=== PATIENT | male | born 1960 | race Caucasian/White ===

== ENCOUNTER 2017-09-27 00:54 | Observation (INO) | payer MEDICAID, OTHER ==
--- NOTE | 2017-09-27 01:13 | CPEKG ---
Heart Rate: 72 RR Interval: 833 P-R Interval: 192 QRSD Interval: 92 QT Interval: 388 QTC Interval: 425 P [place]: 44 QRS [place]: -24 T Wave [place]: 18 EKG Severity - OTHERWISE NORMAL ECG - EKG Impression: SINUS RHYTHM EKG Impression: BORDERLINE LEFT AXIS DEVIATION Electronically Signed By: Rito Oro 27-Sep-2017 01:44:52
[2017-09-27 01:41] LABS: % IMMATURE GRANULYOCYTES 0.3 % (0.0-1.1); ABSOLUTE IMMATURE GRANULOCYTES 0.04 10^3/uL (0.00-0.10); ADD DIFF? NO; ADD MORPH? NO; ADD SCAN? YES; ATYPICAL LYMPHOCYTE FLAG 300 (0-99); FRAGMENT RBC FLAG 0 (0-99); HEMATOCRIT 40.9 % (40.0-51.0); HEMOGLOBIN 14.3 g/dL (13.7-17.5); LEFT SHIFT FLG 0 (0-99); LIPEMIA HEMOLYSIS FLAG 90 (0-99); MEAN CELL HEMOGLOBIN 29.8 pg (27.9-34.1); MEAN CELL VOLUME 85.2 fL (81.5-99.8); MEAN PLATELET VOLUME 10.8 fL (8.7-11.7); PLATELET CLUMPS FLAG 0 (0-99); PLATELET COUNT 165 10^3/uL (150-400)
--- NOTE | 2017-09-27 01:43 | EDPHY ---
H & P Stated Complaint: SOB, " I feel like when I had a blood infection 6 years ago". Time Seen by Provider: 09/27/17 01:03 HPI/ROS: Chief Complaint: Shortness of breath, fatigue HPI: 57-year-old male presenting with 6 days of worsening shortness of breath, lethargy and mild headache. Patient states he feels similar to when he developed a pneumonia with a blood infection 5 years ago. He has not had any cough. Some chills and sweats. No chest pain. Some nausea but no vomiting. Symptoms have been progressing over the week. Patient states when he was admitted to the hospital he was diagnosed with a mitral valve prolapse. He does not recall being told that he has a heart murmur. He does not smoke. Drinks rare alcohol. Denies any other facial drug use. He did fly to [place] several weeks ago otherwise no periods of immobility. 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 ROS: 10 point Review of Systems is negative except as noted in the HPI. PMH: Pneumonia with bacteremia 2011, mitral valve prolapse Social History: No smoking, rare alcohol, no recreational drug use Family History: Father has hypertension and angina at age 88 Physical Exam: Gen: Awake, Alert, No Distress HEENT: Nose: no rhinorrhea Eyes: PERRLA, EOMI Mouth: Moist mucosa Neck: Supple, no JVD Chest: nontender, lungs clear to auscultation Heart: S1, S2 normal, he is a 5 on 6 systolic murmur blowing in nature most pronounced at the apex Abd: Soft, non-tender, no guarding Back: no CVA tenderness, no midline tenderness Ext: no edema, non-tender Skin: no rash Neuro: CN II-XII intact, Sensation grossly intact, Strength 5/5 in bilateral upper and lower extremities - Personal History Current Tetanus/Diphtheria Vaccine: Unsure Current Tetanus Diphtheria and Acellular Pertussis (TDAP): Unsure - Medical/Surgical History Hx Asthma: No Hx Chronic Respiratory Disease: No Hx Diabetes: No Hx Cardiac Disease: No Hx Renal Disease: No Hx Cirrhosis: No Hx Alcoholism: No Hx HIV/AIDS: No Hx Splenectomy or Spleen Trauma: No Other PMH: elbow surgery - Social History Smoking Status: Never smoked Constitutional: Initial Vital Signs Temperature (C) 37.6 C 09/27/17 00:58 Heart Rate 80 09/27/17 00:58 Respiratory Rate 16 09/27/17 00:58 Blood Pressure 103/63 09/27/17 00:58 O2 Sat (%) 92 09/27/17 00:58 O2 Delivery Mode Room Air O2 (L/minute) 2 Allergies/Adverse Reactions: No Known Allergies Allergy (Verified 09/27/17 01:02) Medical Decision Making - Diagnostics EKG Interpretation: ECG time 1:10 a.m., sinus rhythm with a rate of 72, borderline left axis deviation, normal intervals, no acute ST or T-wave changes. Imaging Results: Chest x-ray shows evidence of cephalization. There is no focal infiltrates, appears unchanged from the CT tonger film from 2011. CT scan of the chest is interpreted by Dr. Meier. Cardiomegaly, no PE or airspace disease. Imaging: I viewed and interpreted images myself ED Course/Re-evaluation: 57-year-old male presenting with dyspnea and fatigue for the last week. He has a very dramatic murmur on examination. CT scan of the chest shows cardiomegaly. No evidence of infection at this time. I have discussed the case with Dr. Camacho, he will admit the patient to [facility] to arrange for an echocardiogram today. - Data Points Laboratory Results: Laboratory Results 09/27/17 01:15 09/27/17 01:15 09/27/17 09/27/17 09/27/17 01:15 01:15 01:15 WBC 11.62 10^3/uL H 10^3/uL (3.80-9.50) RBC 4.80 10^6/uL 10^6/uL (4.40-6.38) Hgb 14.3 g/dL g/dL (13.7-17.5) Hct 40.9 % % (40.0-51.0) MCV 85.2 fL fL (81.5-99.8) MCH 29.8 pg pg (27.9-34.1) MCHC 35.0 g/dL g/dL (32.4-36.7) RDW 13.0 % % (11.5-15.2) Plt Count 165 10^3/uL 10^3/uL (150-400) MPV 10.8 fL fL (8.7-11.7) Neut % (Auto) 18.5 % L % (39.3-74.2) Lymph % (Auto) 75.0 % H % (15.0-45.0) [place] % (Auto) 4.7 % % (4.5-13.0) Eos % (Auto) 0.2 % L % (0.6-7.6) Baso % (Auto) 1.3 % % (0.3-1.7) Nucleat RBC Rel Count 0.0 % % (0.0-0.2) Absolute Neuts (auto) 2.15 10^3/uL 10^3/uL (1.70-6.50) Absolute Lymphs (auto) 8.71 10^3/uL H 10^3/uL (1.00-3.00) Absolute Monos (auto) 0.55 10^3/uL 10^3/uL (0.30-0.80) Absolute Eos (auto) 0.02 10^3/uL L 10^3/uL (0.03-0.40) Absolute Basos (auto) 0.15 10^3/uL H 10^3/uL (0.02-0.10) Absolute Nucleated RBC 0.00 10^3/uL 10^3/uL (0-0.01) Immature Gran % 0.3 % % (0.0-1.1) Seg Neutrophils % 17 % % Lymphocytes % 73 % % Monocytes % 10 % % Immature Gran # 0.04 10^3/uL 10^3/uL (0.00-0.10) Absolute Seg Neuts 1.98 10^/uL 10^/uL (1.70-6.50) Absolute Lymphocytes 8.48 10^3/uL H 10^3/uL (1.00-3.00) Absolute Monocytes 1.16 10^3/uL H 10^3/uL (0.30-0.80) RBC/WBC/PLT Morphology NORMAL (NORMAL) Atypical Lymphocytes 3+ H Platelet Estimate ADEQUATE (ADEQ) Smear Review By Pending D-Dimer 4.38 ug/mLFEU H ug/mLFEU (0.00-0.50) Sodium 135 mEq/L mEq/L (134-144) Potassium 4.1 mEq/L mEq/L (3.5-5.2) Chloride 99 mEq/L mEq/L (97-110) Carbon Dioxide 25 mEq/l mEq/l (22-31) Anion Gap 11 mEq/L mEq/L (8-16) BUN 15 mg/dL mg/dL (7-23) Creatinine 1.2 mg/dL mg/dL (0.7-1.3) Estimated GFR > 60 Glucose 103 mg/dL H mg/dL (70-100) Calcium 8.8 mg/dL mg/dL (8.5-10.4) Troponin I < 0.012 ng/mL ng/mL (0.000-0.034) Departure - Departure Disposition: [facility] Inpatient Acute Clinical Impression: Cardiomegaly, Dyspnea Condition: Fair Referrals: DAVON EASON [Other] - As per Instructions
[2017-09-27 02:06] LABS: ANION GAP 11 mEq/L (8-16); CALCIUM 8.8 mg/dL (8.5-10.4); CARBON DIOXIDE 25 mEq/l (22-31); CHLORIDE 99 mEq/L (97-110); CREATININE 1.2 mg/dL (0.7-1.3); GLOMERULAR FILTRATION RATE > 60; GLUCOSE 103 mg/dL (70-100); POTASSIUM 4.1 mEq/L (3.5-5.2); SODIUM 135 mEq/L (134-144)
[2017-09-27 02:07] LABS: SCAN POSITIVE
[2017-09-27 02:11] LABS: PLATELET ESTIMATE ADEQUATE (ADEQ)
[2017-09-27 02:17] LABS: TROPONIN I < 0.012 ng/mL (0.000-0.034)
[2017-09-27] MEDS ORDERED: IOPAMIDOL (ISOVUE 370) 100 ML BTL IV ONE (02:17)
[2017-09-27] MEDS ORDERED: ONDANSETRON DISINTEGRATING 4 MG TAB PO PRN (03:00)
[2017-09-27] MEDS ORDERED: ONDANSETRON 4 MG/2 ML VIAL IVP PRN (03:00)
[2017-09-27] MEDS ORDERED: ACETAMINOPHEN 325 MG TAB PO PRN (03:00)
--- NOTE | 2017-09-27 03:49 | PDGENHP ---
History and Physical - Chief Complaint Fatigue - History of Present Illness 57 yo M w/ PMHx of mitral valve prolapse presents with fatigue. Patient states that he has noted fatigue, subjective fevers, chills, runny nose, and body aches for 5 days. This failed to improve so he came to the ED for evaluation because last time he felt like this he was found to have pneumonia and bacteremia in 2011. He takes no medications regularly and up until 5 days ago, was exercising vigorously without issue. He went skiing last Saturday and felt ok. In the ED D-dimer was high, prompting CTPE, which was negative for PE. Physical examination was notable for III/ systolic murmur at the apex, which was main reason for admission noting constellation of symptoms. History Information - Allergies/Home Medication List Allergies/Adverse Reactions: No Known Allergies Allergy (Verified 09/27/17 01:02) I have personally reviewed and updated: family history, medical history - Past Medical History Additional medical history: MVP - Surgical History Reports: no pertinent surgical hx - Family History Positive for: cancer - Social History Smoking Status: Never smoked Review of Systems Review of Systems: ROS: 10pt was reviewed & negative except for what was stated in HPI & below Physical Exam Physical Exam: Temp Pulse Resp BP Pulse Ox 37.6 C 70 20 123/70 H 97 09/27/17 00:58 09/27/17 03:05 09/27/17 03:05 09/27/17 03:05 09/27/17 03:05 O2 (L/minute) 2 Constitutional: no apparent distress, not in pain Eyes: PERRL, EOMI Ears, Nose, Mouth, Throat: moist mucous membranes, no oral mucosal ulcers Cardiovascular: regular rate and rhythym, systolic murmur (3/6 systolic murmur loudest @ apex), No JVD, No edema Respiratory: no respiratory distress, clear to auscultation Gastrointestinal: normoactive bowel sounds, soft, non-tender abdomen Skin: warm, normal color Musculoskeletal: full muscle strength, no muscle tenderness Neurologic: AAOx3, CN II-XII Intact Psychiatric: interacting appropriately, not anxious Lab Data & Imaging Review 09/27/17 01:15 09/27/17 01:15 WBC 11.62 10^3/uL (3.80-9.50) H 09/27/17 01:15 RBC 4.80 10^6/uL (4.40-6.38) 09/27/17 01:15 Hgb 14.3 g/dL (13.7-17.5) 09/27/17 01:15 Hct 40.9 % (40.0-51.0) 09/27/17 01:15 MCV 85.2 fL (81.5-99.8) 09/27/17 01:15 MCH 29.8 pg (27.9-34.1) 09/27/17 01:15 MCHC 35.0 g/dL (32.4-36.7) 09/27/17 01:15 RDW 13.0 % (11.5-15.2) 09/27/17 01:15 Plt Count 165 10^3/uL (150-400) 09/27/17 01:15 MPV 10.8 fL (8.7-11.7) 09/27/17 01:15 Neut % (Auto) 18.5 % (39.3-74.2) L 09/27/17 01:15 Lymph % (Auto) 75.0 % (15.0-45.0) H 09/27/17 01:15 [place] % (Auto) 4.7 % (4.5-13.0) 09/27/17 01:15 Eos % (Auto) 0.2 % (0.6-7.6) L 09/27/17 01:15 Baso % (Auto) 1.3 % (0.3-1.7) 09/27/17 01:15 Nucleat RBC Rel Count 0.0 % (0.0-0.2) 09/27/17 01:15 Absolute Neuts (auto) 2.15 10^3/uL (1.70-6.50) 09/27/17 01:15 Absolute Lymphs (auto) 8.71 10^3/uL (1.00-3.00) H 09/27/17 01:15 Absolute Monos (auto) 0.55 10^3/uL (0.30-0.80) 09/27/17 01:15 Absolute Eos (auto) 0.02 10^3/uL (0.03-0.40) L 09/27/17 01:15 Absolute Basos (auto) 0.15 10^3/uL (0.02-0.10) H 09/27/17 01:15 Absolute Nucleated RBC 0.00 10^3/uL (0-0.01) 09/27/17 01:15 Immature Gran % 0.3 % (0.0-1.1) 09/27/17 01:15 Seg Neutrophils % 17 % 09/27/17 01:15 Lymphocytes % 73 % 09/27/17 01:15 Monocytes % 10 % 09/27/17 01:15 Immature Gran # 0.04 10^3/uL (0.00-0.10) 09/27/17 01:15 Absolute Seg Neuts 1.98 10^/uL (1.70-6.50) 09/27/17 01:15 Absolute Lymphocytes 8.48 10^3/uL (1.00-3.00) H 09/27/17 01:15 Absolute Monocytes 1.16 10^3/uL (0.30-0.80) H 09/27/17 01:15 RBC/WBC/PLT Morphology NORMAL (NORMAL) 09/27/17 01:15 Atypical Lymphocytes 3+ H 09/27/17 01:15 Platelet Estimate ADEQUATE (ADEQ) 09/27/17 01:15 D-Dimer 4.38 ug/mLFEU (0.00-0.50) H 09/27/17 01:15 Sodium 135 mEq/L (134-144) 09/27/17 01:15 Potassium 4.1 mEq/L (3.5-5.2) 09/27/17 01:15 Chloride 99 mEq/L (97-110) 09/27/17 01:15 Carbon Dioxide 25 mEq/l (22-31) 09/27/17 01:15 Anion Gap 11 mEq/L (8-16) 09/27/17 01:15 BUN 15 mg/dL (7-23) 09/27/17 01:15 Creatinine 1.2 mg/dL (0.7-1.3) 09/27/17 01:15 Estimated GFR > 60 09/27/17 01:15 Glucose 103 mg/dL (70-100) H 09/27/17 01:15 Calcium 8.8 mg/dL (8.5-10.4) 09/27/17 01:15 Troponin I < 0.012 ng/mL (0.000-0.034) 09/27/17 01:15 Imaging Review: CTPE with cardiomegaly but no PE Visualized and Interpreted Chest x-ray results: Yes Chest X-Ray results: no infiltrate Visualized and Interpreted EKG results: Yes EKG Interpretation: Positive for: normal sinsus rhythm Assessment & Plan Assessment: 57 yo M presents with fatigue and found to have new murmur on exam. Plan: 1. Fatigue - Constellation of symptoms (fatigue, fever/chills, runny nose, body aches) suspicious for viral illness. However, noting cardiomegaly and reportedly new murmur, cardiomyopathy and infective endocarditis should be ruled out. - Check flu PCR - Obtain blood cultures, TTE for further evaluation 2. Systolic murmur - Loudest at the apex but heard throughout precordium. This is most likely progression of MVP seen on 2012 TTE. - TTE as above - Consider cardiology consult depending results of TTE Diet - Regular Code - Full Ppx - SCDs Dispo - Admit to observation status
[2017-09-27 05:46] LABS: ANION GAP 12 mEq/L (8-16); CALCIUM 8.6 mg/dL (8.5-10.4); CARBON DIOXIDE 25 mEq/l (22-31); CHLORIDE 99 mEq/L (97-110); CREATININE 1.3 mg/dL (0.7-1.3); GLOMERULAR FILTRATION RATE 57; GLUCOSE 91 mg/dL (70-100); POTASSIUM 4.3 mEq/L (3.5-5.2); SODIUM 136 mEq/L (134-144)
[2017-09-27 05:48] LABS: % IMMATURE GRANULYOCYTES 0.3 % (0.0-1.1); ABSOLUTE IMMATURE GRANULOCYTES 0.04 10^3/uL (0.00-0.10); ABSOLUTE NRBC COUNT 0.02 10^3/uL (0-0.01); ADD DIFF? NO; ADD MORPH? NO; ADD SCAN? YES; FRAGMENT RBC FLAG 0 (0-99); HEMATOCRIT 39.3 % (40.0-51.0); HEMOGLOBIN 13.5 g/dL (13.7-17.5); LEFT SHIFT FLG 0 (0-99); LIPEMIA HEMOLYSIS FLAG 90 (0-99); MEAN CELL HEMOGLOBIN 29.7 pg (27.9-34.1); MEAN CELL HEMOGLOBIN CONCENTR. 34.4 g/dL (32.4-36.7); MEAN CELL VOLUME 86.4 fL (81.5-99.8); MEAN PLATELET VOLUME 10.9 fL (8.7-11.7); NRBC-AUTO% 0.2 % (0.0-0.2); PLATELET CLUMPS FLAG 0 (0-99); PLATELET COUNT 149 10^3/uL (150-400); RED BLOOD CELL COUNT 4.55 10^6/uL (4.40-6.38); RED CELL DISTRIBUTION WIDTH 13.2 % (11.5-15.2)
[2017-09-27 05:49] LABS: ATYPICAL LYMPHOCYTE FLAG 300 (0-99)
[2017-09-27 06:32] LABS: SCAN POSITIVE
[2017-09-27 06:35] LABS: PLATELET ESTIMATE ADEQUATE (ADEQ)
[2017-09-27 08:01] VITALS: RESP 17
--- NOTE | 2017-09-27 10:41 | ASMTCMCOM ---
CM Note CM Note Notes: 09/27/2017 Case Management Note Reviewed chart. No case management d/c needs identfied d/t pt age, marital status and activity levels prior to admission. There are no PT or OT evals ordered. Case Management d/c poc: Home independent with family support when medically stable. Case Management available if needs change. Date Signed: 09/27/2017 10:40 AM Electronically Signed By:Jennifer Jim RN
[2017-09-27 12:16] VITALS: BP 118/69; PULSE 65; TEMP 98.1; O2SAT 93
--- NOTE | 2017-09-27 13:59 | ECHO ---
[email or web address] [address] Main: [phone] Fax: [email or web address] Echocardiogram Name: MELODY WARE MR#: [id number] Study Date: 09/27/2017 Study Time: 08:37 AM Date of : 1960 Age: 57 year(s) Height: 180.3 cm (71 in.) Weight: 90.72 kg (200 lb.) BSA: 2.11 m2 Gender: Male Examination: Echo Indication: SIN/murmur Image Quality: Contrast: Requested by: Anton Bennett BP: 113 mmHg/64 mmHg Heart Rate: Rhythm: Indication: SIN/murmur Procedure Staff Gi Physician: Lu Ramírez Reading Physician: Alexei Guillen Requesting Provider: Conclusions: Moderately to severely dilated left ventricle. Normal global systolic LV function. EF is 76 %. The left atrium is moderately to severely dilated. There is severe prolapse of the posterior leaflet of the mitral valve. Moderate to severe mitral regurgitation. Mild tricuspid regurgitation is present. No pericardial effusion. Measurements: Chambers Valvular Assessment AV/MV Valvular Assessment TV/PV Normal Normal Normal Name Value Range Name Value Range Name Value Range Ao Samantha (MM): 4.0 cm (2.2 cm-3.7 AV meanP mmHg ( - ) TR Vmax: 3.22 mm/s ( - ) cm) BRANDIE (VTI): 3.4 cm ( - ) TR PGmax: 41 mmHg ( - ) IVSd (2D): 1.0 cm (0.6 cm-1.1 MV E Vmax: 1.52 m/s ( - ) syst. PAP: 46 mmHg ( - ) cm) MV A Vmax: 0.44 m/s ( - ) LVDd (2D): 7.1 cm (4.2 cm-5.9 MV E/A: 3.45 ( - ) cm) MV meanP mmHg ( - ) LVDs (2D): 3.9 cm (2.1 cm-4 cm) MVA (Vmax): 2.2 m/s ( - ) LVPWd (2D): 0.9 cm (0.6 cm-1 cm) LVOTd 2.3 cm 2.3 cm mm LVEF (MOD4): 76 % (>=55 %) Continued Measurements: Chambers Valvular Assessment AV/MV Valvular Assessment TV/PV Name Value Name Value Name Value Patient: MELODY WARE Study Date: 09/27/2017 Page 1 of 2 08:37 AM LADs: 5.2 cm MV Annulus: 5.2 cm CVP (est.): 5 mmHg LADs Lon.7 cm MV E' Septal: 0.07 m/s LA Area: 40.3 cm2 MV E/E' Septal: 23.30 MV E/E' Lateral: 8.70 MV VTI: 39.80 cm MR ERO: 1.610 cm2 MR PISA radius: 17 mm MR Reg. Volume: 175 ml MR Reg. Fraction: 21 % Findings: Left Ventricle: Moderately to severely dilated left ventricle. Normal global systolic LV function. EF is 76 %. Right Ventricle: Normal size right ventricle. Left Atrium: The left atrium is moderately to severely dilated. Mitral Valve: There is severe prolapse of the posterior leaflet of the mitral valve. Moderate to severe mitral regurgitation. Aortic Valve: The aortic valve is tri-leaflet. There is no aortic valve regurgitation. Tricuspid Valve: The tricuspid valve appears normal. Mild tricuspid regurgitation is present. The pulmonary artery pressure is mildly increased. RVSP is 46mmHG.. Pulmonic Valve: The pulmonic valve is normal in appearance. Pericardium: No pericardial effusion. (No Signature Object) Patient: MELODY WARE Study Date: 09/27/2017 Page 2 of 2 08:37 AM [id number]
--- NOTE | 2017-09-27 15:42 | HOSPPROG ---
Hospitalist Progress Note Assessment/Plan: * Severe MR due to MVP with dilated LV -consult cardiology - d/w Dr. Guillen * Leukocytosis - lymphocyte predominant -suspect viral -follow until resolution * Splenomegaly -check US and EBV antibodies * Fatigue -suspect viral illness -resp PCR negative Subjective: No new complaints. Objective: Vital Signs Temp Pulse Resp BP Pulse Ox 36.7 C 65 17 118/69 93 09/27/17 12:00 09/27/17 12:00 09/27/17 12:00 09/27/17 12:00 09/27/17 12:00 Microbiology 09/27/17 03:45 Respiratory Panel (PCR) - Final Nasal, Sinus - Swab No Organism Detected Laboratory Results 09/27/17 04:35 09/27/17 04:35 09/26/17 09/27/17 09/28/17 05:59 05:59 05:59 Intake Total 650 Output Total 350 Balance 650 -350 ECHO reviewed - severe MR due to MVP with LV changes ICD10 Worksheet Patient Problems: Problems Problem Status Onset Cardiomegaly Acute Dyspnea Acute
--- NOTE | 2017-09-27 16:39 | GDS ---
[f rep st] DISCHARGE SUMMARY DISCHARGE DIAGNOSES: 1. Severe mitral regurgitation due to mitral valve prolapse with a dilated left ventricle. 2. Lymphocyte predominant leukocytosis; suspect viral illness. 3. Splenomegaly; suspect viral illness. HISTORY: The patient is a 57-year-old male, who presented to the hospital with fatigue, as he was co ncerned he may have recurrence of bacterial pneumonia which he has had in the past. He was noted to have a significant murmur and there was some concern for possible endocarditis, so he was admitted ju to monitor blood cultures. Blood cultures at the time of discharge remained negative. His leukoc ytosis is lymphocyte predominant and most consistent with a viral illness. He had a CT angiogram of the chest that was negative for PE, but we did incidentally find some splenomegaly. I suspect this i s also part of the same viral illness. He should follow up with primary care until this has normaliz ed. Echocardiogram was performed due to the significant murmur, and he was found to have severe mitral re gurgitation due to mitral valve prolapse with a dilated left ventricle. Cardiology was consulted, an d he will likely need mitral valve replacement surgery. It is probably better for him to fully recov er from this viral illness prior to proceeding with CT surgery evaluation. He will discharge home to day, and Cardiology will contact him regarding scheduling for right and left heart catheterization, T EE, and consultation with Dr. Castaneda. DISCHARGE MEDICATIONS: Please see computer record for full detailed list. There are no new medicati ons given at time of hospital discharge. ADDITIONAL DISCHARGE INSTRUCTIONS: 1. Repeat CBC in 1-2 weeks with primary care to ensure normalization. 2. Follow up with primary care regarding spleen enlargement. 3. Follow up with [facility] regarding severe mitral prolapse and needed studies as discussed abo ve. TIME SPENT: Greater than 30 minutes' time was spent arranging this discharge. Patient seen and exam ined by me on day of discharge. /[id number]/MODL
--- NOTE | 2017-09-27 18:30 | GCON ---
[f rep st] CONSULTATION DATE OF CONSULTATION: 09/27/2017 REFERRING PHYSICIAN: Maria G Kunz MD REASON FOR CONSULTATION: Valvular heart disease. HISTORY: The patient is a 57-year-old male with previously documented mitral valve prolapse, who pre sented to the emergency room today with fatigue, subjective fevers and chills, a runny nose and myalg ias. He had concerns because in 2011 he was hospitalized with similar infectious symptoms and was fo und to have a gram-positive cocci bacteremia which was treated with a prolonged course of antibiotic therapy. His evaluation by the hospitalist service is most consistent with a viral upper respiratory tract infection. Because of previously documented mitral valve prolapse, an echocardiogram was requ ested. That study demonstrates significant left ventricular dilatation with preserved left ventricul ar function. He has a myxomatous-appearing mitral valve with predominantly posterior leaflet prolaps e producing gsrmelqe-hr-clgugl mitral regurgitation. The patient reports that apart from the symptom s that prompted this hospital encounter, he has generally been feeling well and remains very physical ly active without a sense of specific limitations. PAST CARDIAC HISTORY AND TESTING: His only cardiac history relates to his mitral valve prolapse. As mentioned previously, that was discovered incidentally on an echocardiogram performed in 2011 during an episode of bacteremia. The patient was seen in consultation by Dr. Reyes from our practice. However, the patient has had no outpatient cardiac followup over the ensuing 5 years. His cardiovasc ular risk profile is low with absence of hypertension, hyperlipidemia, type 2 diabetes, smoking histo ry, or family history of premature CAD. PAST MEDICAL HISTORY: Essentially unremarkable except for his mitral valve prolapse and a tendency t o upper respiratory tract infections. MEDICATIONS: He is on no prescription medications. ALLERGIES: No known drug allergies. FAMILY HISTORY: Noncontributory. SOCIAL HISTORY: He is . He has 3 sons. He has never smoked and rarely consumes alcohol. 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 He is very active with activiti es such as hiking and skiing. REVIEW OF SYSTEMS: Apart from those items mentioned in the History of Present Illness, a 10-point re view was negative. PHYSICAL EXAMINATION: VITAL SIGNS: Heart rate in the 60s with sinus rhythm on monitor. Blood press ure 118/69. GENERAL: Well developed, well nourished, healthy appearing middle-aged male, in no acut e distress. He is alert and oriented x3. HEAD AND NECK: No scleral icterus. Mucous membranes mois t. Carotid pulses 2+ without bruits. There is no JVD. CHEST: Lung ojeda clear to auscultation. CARDIAC: Regular rate and rhythm with a normal S1 and S2. There is a holosystolic murmur. ABDOMEN: Soft, nontender, nondistended, with normal bowel sounds. EXTREMITIES: 2+ pulses and no peripheral edema. ECG: Demonstrates normal sinus rhythm. There are no Q-waves or conduction system abnormalities. Th ere are no ischemic ST-T wave changes. LABORATORY STUDIES: Sodium 136, potassium 4.3, BUN and creatinine 13 and 1.3. Troponin was less alex n 0.012. BNP is minimally elevated at 251. ECHOCARDIOGRAM: His left ventricle is moderately to severely dilated with an end-diastolic dimension of 7.1 cm. Ejection fraction is normal at 76%. There is nansnkla-cq-dnxsxu left atrial enlargement . He has a myxomatous-appearing mitral valve with prolapse of the posterior leaflet producing modera uq-nv-jtqojo mitral regurgitation. He has mild tricuspid regurgitation. 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 His left ventricle is now significantly dilated. He does not manifest any symptoms suggestive of angina, congestive heart failure, or arrhythmias. He had a CT pulmonary angio gram on admission which was negative for pulmonary embolism. There was no mention made of coronary c alcification on that study. However, a similar study performed in January of 2012 made note of coronar y calcification along the course of the circumflex indicating the presence of some atherosclerosis. RECOMMENDATIONS: I had a lengthy discussion with the patient, his , and their adult son nikita tobin the findings of his echo and its implications. I explained that he is nearing the time for conside ration of mitral valve repair/replacement. I also outlined the testing that would be necessary prior to referral to CT surgery. Namely, he will need to undergo a transesophageal echocardiogram and rig ht and left heart catheterization. At this point, I think he can be discharged home. I have sent no tification through our office electronic charting system that he needs to be contacted to arrange for his DENICE and heart catheterization. We will then plan for referral to Dr. Castaneda in cardiothoracic [facility]. /[id number]/MODL
--- NOTE | 2017-09-28 12:22 | ASDISCHSUM ---
Discharge Information Plan Status:Home with No Needs Medically Cleared to Leave: Discharge Date:09/27/2017 05:07 PM CM D/C Disposition:Home, Routine, Self-Care ADT D/C Disposition:Home, Routine, Self-Care Projected Discharge Date:09/27/2017 05:07 PM Transportation at D/C:Family Discharge Delay Reason: Follow-Up Date:09/27/2017 05:07 PM Discharge Slot: Final Diagnosis: Placement Information Patient Contact Information Contact Name:ANNETTA Relationship: Address:[address] Work Phone: [facility]:[employer] Alternate Phone: [facility]/Zip Code:[place] [address] Email: Financial Information Financial Class: Primary Plan Desc:[employer] Primary Plan Number:[id number] Secondary Plan Desc: Secondary Plan Number: Assessment Information [facility] CM Progress Note CM Note CM Note Notes: 09/27/2017 Case Management Note Reviewed chart. No case management d/c needs identfied d/t pt age, marital status and activity levels prior to admission. There are no PT or OT evals ordered. Case Management d/c poc: Home independent with family support when medically stable. Case Management available if needs change. Date Signed: 09/27/2017 10:40 AM Electronically Signed By:Jennifer Jim RN Intervention Information
== END 2017-09-27 17:07 | disposition home or self-care (01) ==
LOC: F2W 04:14
PROVIDERS: ADMIT Student in an Organized Health Care Education/Training Program; ATTEND Internal Medicine
DX: I34.0 Nonrheumatic mitral (valve) insufficiency (principal); R16.1 Splenomegaly, not elsewhere classified; D72.829 Elevated white blood cell count, unspecified
CPT/HCPCS: 71020; 71275; 93005; 93306; G0378; Q9967

== ENCOUNTER 2017-10-10 12:00 | Day surgery (SDC) | payer MEDICAID ==
[2017-10-10] MEDS ORDERED: DIAZEPAM 5 MG TAB PO ONE (12:03)
[2017-10-10] MEDS ORDERED: ASPIRIN EC 325 MG TAB PO ONE (12:03)
[2017-10-10] MEDS ORDERED: NS 1,000 ML IV ONE (12:03)
[2017-10-10] MEDS ORDERED: FAMOTIDINE 20 MG TAB PO ONE (12:03)
[2017-10-10] MEDS ORDERED: diphenhydrAMINE 25 MG CAP PO ONE (12:03)
--- NOTE | 2017-10-10 12:20 | CPEKG ---
Heart Rate: 71 RR Interval: 845 P-R Interval: 188 QRSD Interval: 92 QT Interval: 412 QTC Interval: 448 P [place]: 66 QRS [place]cock: -13 T Wave [place]: 29 EKG Severity - ABNORMAL ECG - EKG Impression: SINUS RHYTHM EKG Impression: CONSIDER LEFT VENTRICULAR HYPERTROPHY Electronically Signed By: Dilshad Godinez 11-Oct-2017 20:26:56
[2017-10-10] MEDS ORDERED: MIDAZOLAM 2 MG/2 ML VIAL IVP ONE (12:23)
[2017-10-10] MEDS ORDERED: NS 500 ML IV ONE (12:23)
[2017-10-10] MEDS ORDERED: fentaNYL 100 MCG/2 ML INJ IVP ONE (12:23)
[2017-10-10] MEDS ORDERED: BENZOCAINE UNIT DOSE SPRAY HURRICAINE MM ONE (12:23)
[2017-10-10 12:30] LABS: % IMMATURE GRANULYOCYTES 0.3 % (0.0-1.1); ABSOLUTE IMMATURE GRANULOCYTES 0.02 10^3/uL (0.00-0.10); ADD DIFF? NO; ADD MORPH? NO; ADD SCAN? YES; FRAGMENT RBC FLAG 0 (0-99); HEMATOCRIT 43.7 % (40.0-51.0); HEMOGLOBIN 15.3 g/dL (13.7-17.5); LEFT SHIFT FLG 0 (0-99); LIPEMIA HEMOLYSIS FLAG 90 (0-99); MEAN CELL HEMOGLOBIN 30.1 pg (27.9-34.1); MEAN CELL VOLUME 85.9 fL (81.5-99.8); MEAN PLATELET VOLUME 9.7 fL (8.7-11.7); PLATELET CLUMPS FLAG 10 (0-99); PLATELET COUNT 175 10^3/uL (150-400); RED BLOOD CELL COUNT 5.09 10^6/uL (4.40-6.38); RED CELL DISTRIBUTION WIDTH 13.6 % (11.5-15.2)
[2017-10-10 12:33] LABS: ATYPICAL LYMPHOCYTE FLAG 100 (0-99)
[2017-10-10 12:40] LABS: INR 0.99 (0.83-1.16); PROTIME(PATIENT) 13.3 SEC (12.0-15.0)
[2017-10-10 12:44] LABS: ANION GAP 12 mEq/L (8-16); CALCIUM 9.1 mg/dL (8.5-10.4); CARBON DIOXIDE 25 mEq/l (22-31); CHLORIDE 104 mEq/L (97-110); CHOLESTEROL 163 mg/dL (140-220); CHOLESTEROL/HDL RATIO 5.62 RATIO (1.00-4.97); GLOMERULAR FILTRATION RATE > 60; GLUCOSE 94 mg/dL (70-100); HIGH DENSITY LIPOPROTEIN 29 mg/dL (40-65); LDL/HDL RATIO 3.17 RATIO (1.00-3.64); LOW DENSITY LIPOPROTEIN 92 mg/dL (80-100); MAGNESIUM 2.2 mg/dL (1.6-2.3); NON-HIGH DENSITY LIPOPROTEIN 134 mg/dL (90-129); POTASSIUM 4.2 mEq/L (3.5-5.2); SODIUM 141 mEq/L (134-144); TRIGLYCERIDE 210 mg/dL (40-150); VERY LOW DENSITY LIPOPROTEINS 42 mg/dL (8-25)
--- NOTE | 2017-10-10 12:48 | PDHPUP ---
History & Physical Update H&P update statement: This history and physical update is based on an assessment of the patient which was completed after admission or registration (within 24 hours), but prior to the surgery/procedure. H&P update: H&P reviewed & patient examined, no change in patient's condition since H&P completed
--- NOTE | 2017-10-10 12:48 | PDPROPOC ---
Sedation Plan of Care Sedation Plan of Care: vital signs stable, mental status noted, patient educated of risks, benefits, alternatives, patient can tolerate sedation ASA Classification: ASA 1 Planned drugs: fentanyl, midazolam Mallampati Score: Class 1 Mallampati Reference Image: Patient passed 3-3-2 rule?: Yes
[2017-10-10] MEDS ORDERED: LIDOCAINE 1% 300 MG/30 ML SDV ONE (13:15)
[2017-10-10] MEDS ORDERED: MIDAZOLAM 2 MG/2 ML VIAL ONE (13:16)
[2017-10-10] MEDS ORDERED: fentaNYL 100 MCG/2 ML INJ ONE (13:16)
[2017-10-10] MEDS ORDERED: IOPAMIDOL (ISOVUE-370) 150 ML BTL IV ONE (13:16)
[2017-10-10 14:02] LABS: SCAN POSITIVE
[2017-10-10 14:07] LABS: PLATELET ESTIMATE ADEQUATE (ADEQ)
[2017-10-10] MEDS ORDERED: ATROPINE SULFATE 1 MG/10 ML SYR IVP PRN (14:31)
[2017-10-10] MEDS ORDERED: HYDROCODONE/APAP 5/325 TAB PO PRN (14:31)
[2017-10-10] MEDS ORDERED: ONDANSETRON 4 MG/2 ML VIAL IVP PRN (14:31)
--- NOTE | 2017-10-10 14:37 | PDDXCAT ---
Diagnostic Cath Note - . Date: 10/10/17 Chain Maker Loom Control: Wilmer Indication: other (Mitral valve prolapse with severe MR and LV dilatation.) - Procedure Access: right groin Procedure: left heart catheterization, coronary angiography, left ventriculogram , right heart catheterization - Materials Left Heart Cath size: 6F Left Heart Cath materials: standard multipack (JL4, JR4, pigtail) Right Heart Cath size: 7F Right Heart Cath materials: PWP catheter - Findings-Left Heart Catheterization LM: Angiographically normal. LAD: Angiographically normal. LCX: Angiographically normal. RCA: Angiographically normal. EDP: 19 mmHg LVEF: 60% with severe MR Wall motion: Normal - Findings-Right Heart Catheterization RA: 10 mmHg RV: 34/8 mmHg PA: 35/18/25 mmHg O2 sat 78% PAOP: 15 mmHg AO: 111/57/76 mmHg O2 sat 97% Estimated blood loss: <50ml Closure method: Angioseal Assessment: 1) Normal LV systolic function. 2) Angiographically normal coronary arteries. 3) Severe mitral regurgitation. Plan: Referral to CT surgery for mitral valve repair/replacement. Patient Problems: Problems Problem Status Onset Cardiomegaly Acute Dyspnea Acute
--- NOTE | 2017-10-10 14:48 | ECHO ---
[email or web address] [place] [id number] Main: [phone] Fax: Transesophageal Echocardiography Name: ANDRY WARE MR#: [id number] Study Date: 10/10/2017 Study Time: 12:33 PM Date of : 1960 Age: 57 year(s) Height: ( ) Weight: ( ) BSA: Gender: Male Examination: DENICE Indication: Eval mitral valve Image Quality: Contrast: Requested by: Alexei Guillen Heart Rate: Rhythm: BP: 113 mmHg/76 mmHg Procedure Staff Mine Captain: Lu Ramírez Reading Physician: Alexei Guillen Requesting Provider: DENICE Exam Details Conclusions: Normal global systolic LV function. An agitated saline study was performed and was negative for intracardiac shunting. There is severe prolapse of the posterior leaflet of the mitral valve. Severe mitral valve regurgitation is present. The aortic valve is tri-leaflet. Trivial tricuspid valve regurgitation. Measurements: Chambers Valvular Assessment AV/MV Valvular Assessment TV/PV Normal Normal Normal Name Value Range Name Value Range Name Value Range Additional Measurements: Findings: Left Ventricle: Normal global systolic LV function. Left Atrium: An agitated saline study was performed and was negative for intracardiac shunting. Mitral Valve: There is severe prolapse of the posterior leaflet of the mitral valve. Severe mitral valve regurgitation is present. Aortic Valve: Patient: ANDRY WARE Study Date: 10/10/2017 Page 1 of 2 12:33 PM The aortic valve is tri-leaflet. There is no aortic valve regurgitation. Tricuspid Valve: The tricuspid valve appears normal. Trivial tricuspid valve regurgitation. l1n (No Signature Object) Patient: ANDRY WARE Study Date: 10/10/2017 Page 2 of 2 12:33 PM [id number]
== END 2017-10-10 18:42 | disposition home or self-care (01) ==
LOC: FCATH 12:00
PROVIDERS: ATTEND Internal Medicine Interventional Cardiology
PROC: 4A023N8 Measurement of Cardiac Sampling and Pressure, Bilateral, Percutaneous Approach (ICD-10-PCS; principal; 2017-10-10)
PROC: B2151ZZ Fluoroscopy of Left Heart using Low Osmolar Contrast (ICD-10-PCS; principal; 2017-10-10)
PROC: B245ZZ4 Ultrasonography of Left Heart, Transesophageal (ICD-10-PCS; principal; 2017-10-10)
PROC: B2111ZZ Fluoroscopy of Multiple Coronary Arteries using Low Osmolar Contrast (ICD-10-PCS; principal; 2017-10-10)
DX: I34.0 Nonrheumatic mitral (valve) insufficiency (principal)
CPT/HCPCS: C1760; J1644; J2250; J3010; Q9967

== ENCOUNTER 2017-11-07 07:15 | Inpatient (IN) | payer MEDICAID ==
[2017-11-15] MEDS ORDERED: ceFAZolin 2 GM/SWFI 2 GM/20 ML SYR IVP ONE (06:00)
[2017-11-15] MEDS ORDERED: SODIUM BICARBONATE 20 MEQ, LIDOCAINE 1% 10 ML in NORMOSOL-R 1,000 ML MISC ONE (06:00)
[2017-11-15] MEDS ORDERED: INSULIN REGULAR HUMAN 100 UNIT in NS 100 ML IV ONE (06:00)
[2017-11-15] MEDS ORDERED: NOREPINEPHRINE BITARTRATE 16 MG in NS 250 ML IV ONE (06:00)
[2017-11-15] MEDS ORDERED: LIDOCAINE 1% 5 ML SDV ID PRN (06:00)
[2017-11-15] MEDS ORDERED: MANNITOL 25% 12.5 GM/50 ML VIAL IVP ONE (06:00)
[2017-11-15] MEDS ORDERED: PHENYLEPHRINE HCL 50 MG in NS 250 ML IV ONE (06:00)
[2017-11-15] MEDS ORDERED: TRANEXAMIC ACID 1,000 MG in NS 100 ML IV ONE (06:00)
[2017-11-15] MEDS ORDERED: CITRATE DEXTROSE SOLN 500 ML BAG MISC ONE (06:00)
[2017-11-15] MEDS ORDERED: LR 1,000 ML IV ONE (06:05)
[2017-11-15] MEDS ORDERED: ALBUMIN 5% 250 ML BOTTLE IV ONE ×2 (06:06→10:21)
[2017-11-15] MEDS ORDERED: PROTAMINE SULFATE 50 MG/5 ML VIAL IVP ONE ×3 (06:06→18:00)
[2017-11-15] MEDS ORDERED: NA BICARBONATE 50 MEQ/50 ML VIAL ONE ×2 (06:07→15:15)
[2017-11-15] MEDS ORDERED: niCARdipine/NACL/200 ML BAG IV ONE (06:07)
[2017-11-15] MEDS ORDERED: MILRINONE/DEXTROSE/100 ML BAG IV ONE (06:07)
[2017-11-15] MEDS ORDERED: DOPamine/DEXTROSE/250 ML BAG IV ONE ×2 (06:07→22:13)
[2017-11-15] MEDS ORDERED: CITRATE DEXTROSE SOLN 500 ML BAG ONE (06:07)
[2017-11-15] MEDS ORDERED: HEPARIN 10,000 UNIT/10 ML MDV (1,000 UNIT/ML) ONE (06:07)
[2017-11-15] MEDS ORDERED: CALCIUM CHLORIDE 1 GM/10 ML INJ ONE (06:07)
[2017-11-15] MEDS ORDERED: LIDOCAINE 2% 100 MG/5 ML SYR ONE (06:07)
[2017-11-15] MEDS ORDERED: MAGNESIUM SULFATE 1 GM/2 ML VIAL ONE (06:08)
[2017-11-15] MEDS ORDERED: ADENOSINE 6 MG/2 ML VIAL ONE (06:08)
[2017-11-15] MEDS ORDERED: AMIODARONE HCL 150 MG/3 ML VIAL ONE (06:08)
[2017-11-15] MEDS ORDERED: ceFAZolin 1 GM VIAL ONE (06:08)
[2017-11-15] MEDS ORDERED: methylPREDNISolone SOD SUCC 1 GM/8 ML VIAL ONE (06:08)
--- NOTE | 2017-11-15 06:16 | PDHPUP ---
History & Physical Update H&P update statement: This history and physical update is based on an assessment of the patient which was completed after admission or registration (within 24 hours), but prior to the surgery/procedure. H&P update: H&P reviewed & patient examined H&P changes: PT with URI now recovered. Denies fever, productive cough.
[2017-11-15] MEDS: MUPIROCIN 2% 22 GM OINT NS SCH ×3 (06:29→21:17)
[2017-11-15] MEDS ORDERED: MIDAZOLAM 2 MG/2 ML VIAL ONE (07:04)
[2017-11-15] MEDS ORDERED: MIDAZOLAM 2 MG/2 ML VIAL IVP ONE (07:05)
--- NOTE | 2017-11-15 07:06 | PDANEPAE ---
ANE History of Present Illness here for mini mvr ANE Past Medical History - Cardiovascular History Hx Hypertension: No Hx Arrhythmias: No Hx Chest Pain: No Hx Coronary Artery / Peripheral Vascular Disease: No Hx CHF / Valvular Disease: Yes Hx Palpitations: No Cardiovascular History Comment: mitral valve prolapse - Pulmonary History Hx COPD: No Hx Asthma/Reactive Airway Disease: No Hx Recent Upper Respiratory Infection: No Hx Oxygen in Use at Home: No Hx Sleep Apnea: No Sleep Apnea Screening Result - Last Documented: Negative Pulmonary History Comment: pneumonia couple times last 5 yrs ago - Neurologic History Hx Cerebrovascular Accident: No Hx Seizures: No Hx Dementia: No - Endocrine History Hx Diabetes: No - Renal History Hx Renal Disorders: No - Liver History Hx Hepatic Disorders: No - Neurological & Psychiatric Hx Hx Neurological and Psychiatric Disorders: No - Cancer History Hx Cancer: No - Congenital Disorder History Hx Congenital Disorders: No - GI History Hx Gastrointestinal Disorders: No - Other Health History Other Health History: none - Chronic Pain History Chronic Pain: No - Surgical History Prior Surgeries: none ANE Review of Systems Review of Systems: - Exercise capacity METS (RN): 6 METS ANE Patient History - Allergies Allergies/Adverse Reactions: No Known Allergies Allergy (Verified 09/27/17 01:02) - Home Medications Home Medications: NK [No Known Home Meds] 09/27/17 [Last Taken Unknown] - NPO status NPO Since - Liquids (Date): 11/14/17 NPO Since - Liquids (Time): 18:00 NPO Since - Solids (Date): 11/14/17 NPO Since - Solids (Time): 21:00 - Smoking Hx Smoking Status: Never smoked - Family Anes Hx Family Hx Anesthesia Complications: none ANE Labs/Vital Signs - Vital Signs Blood Pressure: 109/58 Heart Rate: 65 Respiratory Rate: 16 O2 Sat (%): 98 Height: 180.34 cm Weight: 90.718 kg
[2017-11-15] MEDS ORDERED: PROPOFOL/EMULSION 500 MG/50 ML BOTTLE IV ONE (07:10)
[2017-11-15] MEDS ORDERED: fentaNYL 250 MCG/5 ML INJ ONE (07:12)
[2017-11-15] MEDS ORDERED: KETAMINE 200 MG/20 ML VIAL ONE (07:45)
[2017-11-15] MEDS ORDERED: HYDROmorphONE/DILAUDID 2 MG/ML INJ ONE ×2 (07:57→08:23)
[2017-11-15] MEDS ORDERED: BUPIVACAINE 0.25% 30 ML SDV ONE (09:58)
[2017-11-15] MEDS ORDERED: MAGNESIUM SULF 2 GM/WATER 50 ML BAG IV ONE (10:21)
[2017-11-15] MEDS ORDERED: MINERAL OIL 10 ML VIAL ONE (11:58)
[2017-11-15] MEDS ORDERED: SUGAMMADEX SODIUM 200 MG/2 ML VIAL IVP ONE ×2 (13:09)
[2017-11-15] MEDS ORDERED: PROPOFOL 200 MG/20 ML VIAL ONE (13:43)
[2017-11-15] MEDS ORDERED: BISACODYL 10 MG SUPP PR PRN (13:50)
[2017-11-15] MEDS ORDERED: D50W 25 GM/50 ML SYR IVP PRN (13:50)
[2017-11-15] MEDS ORDERED: ONDANSETRON 4 MG/2 ML VIAL IVP PRN (13:50)
[2017-11-15] MEDS ORDERED: ACETAMINOPHEN 325 MG TAB PO PRN (13:50)
[2017-11-15] MEDS ORDERED: SODIUM CL NASAL 45 ML BTL EACHNARE PRN (13:50)
[2017-11-15] MEDS ORDERED: METOCLOPRAMIDE 10 MG/2 ML VIAL IVP PRN (13:50)
[2017-11-15] MEDS ORDERED: ONDANSETRON DISINTEGRATING 4 MG TAB PO PRN (13:50)
[2017-11-15] MEDS ORDERED: LACTULOSE 20 GM/30 ML UDCUP PO PRN (13:50)
[2017-11-15] MEDS ORDERED: MAGNESIUM SULF 2 GM/WATER 50 ML IV ONE (13:50)
[2017-11-15] MEDS ORDERED: PANTOPRAZOLE SODIUM 40 MG VIAL IVP ONE (13:50)
[2017-11-15] MEDS ORDERED: ACETAMINOPHEN 650 MG SUPP PR PRN (13:50)
[2017-11-15] MEDS ORDERED: MEPERIDINE 25 MG/ML SYR IVP PRN (13:50)
[2017-11-15] MEDS ORDERED: MAGNESIUM HYDROXIDE 30 ML UDCUP PO PRN (13:50)
[2017-11-15] MEDS ORDERED: CEPACOL LOZENGE PO PRN (13:50)
[2017-11-15] MEDS ORDERED: POLYETHYLENE GLYCOL 3350 17 GM PKT PO PRN (13:50)
[2017-11-15] MEDS ORDERED: NS 1,000 ML IV SCH (14:00)
[2017-11-15] MEDS ORDERED: INSULIN REGULAR HUMAN 100 UNIT in NS 100 ML IV SCH (14:00)
--- NOTE | 2017-11-15 14:30 | CPEKG ---
Heart Rate: 93 RR Interval: 645 P-R Interval: 208 QRSD Interval: 92 QT Interval: 384 QTC Interval: 478 P [place]: 60 QRS [place]: -45 T Wave [place]: 108 EKG Severity - ABNORMAL ECG - EKG Impression: SINUS RHYTHM EKG Impression: FIRST DEGREE AV BLOCK EKG Impression: ST ELEVATION, PROBABLE INFERIOR INJURY EKG Impression: LATERAL LEADS ARE ALSO INVOLVED EKG Impression: BORDERLINE ST ELEVATION, ANTERIOR LEADS EKG Impression: BORDERLINE PROLONGED QT INTERVAL Electronically Signed By: Kishan Pearson 16-Nov-2017 10:05:11
[2017-11-15] MEDS: POTASSIUM Cl (KCl) 50 ML IV PRN ×2 (14:44→14:45)
[2017-11-15] MEDS: ALBUMIN 5% 250 ML IV PRN ×4 (14:50→18:09)
[2017-11-15] MEDS ORDERED: KETOROLAC 30 MG/1 ML SDV ONE (15:08)
[2017-11-15] MEDS ORDERED: SODIUM BICARBONATE 50 MEQ/50 ML SYR IV ONE (15:30)
[2017-11-15] MEDS ORDERED: NA BICARBONATE 50 MEQ/50 ML VIAL IV ONE (15:45)
[2017-11-15] MEDS ORDERED: NOREPINEPHRINE BITARTRATE 16 MG in NS 250 ML IV SCH (16:00)
--- NOTE | 2017-11-15 16:31 | CPEKG ---
Heart Rate: 80 RR Interval: 750 P-R Interval: 204 QRSD Interval: 88 QT Interval: 416 QTC Interval: 480 P [place]: 66 QRS [place]: -46 T Wave [place]: 69 EKG Severity - ABNORMAL ECG - EKG Impression: SINUS RHYTHM EKG Impression: PROBABLE INFERIOR INFARCT, OLD EKG Impression: BORDERLINE PROLONGED QT INTERVAL Electronically Signed By: Kishan Pearson 16-Nov-2017 10:04:48
--- NOTE | 2017-11-15 17:31 | POSTANESTH ---
Post Anesthetic Evaluation Cardiovascular Status: Normal, Stable Respiratory Status: Normal, Stable Level of Consciousness/Mental Status: Can Participate in Eval Pain Control: Adequate, Prn Tx Ordered Nausea/Vomiting Control: Adequate, Prn Tx Ordered Complications Possibly Related to Anesthesia: None Noted
[2017-11-15] MEDS: KETOROLAC 15 MG/1 ML SDV IVP SCH (18:07)
[2017-11-15] MEDS ORDERED: ALBUMIN 5% 500 ML BOTTLE IV ONE ×2 (19:24→19:25)
[2017-11-15] MEDS ORDERED: ALBUMIN 5% 500 ML IV ONE (20:00)
[2017-11-15] MEDS: SENNOSIDES/DOCUSATE SODIUM TAB PO SCH (21:18)
[2017-11-15] MEDS: ceFAZolin 2 GM/DEXTROSE 100 ML IV SCH (23:11)
[2017-11-16] MEDS: KETOROLAC 15 MG/1 ML SDV IVP SCH ×4 (00:19→19:06)
[2017-11-16 04:21] LABS: PLATELET COUNT 93 10^3/uL (150-400)
[2017-11-16] MEDS: fentaNYL 100 MCG/2 ML INJ IVP PRN ×2 (04:27→08:16)
[2017-11-16 04:30] LABS: INR 1.26 (0.83-1.16)
[2017-11-16] MEDS: HEPARIN 5,000 UNIT/0.5 ML SYR SC SCH ×3 (05:10→19:42)
[2017-11-16] MEDS: ceFAZolin 2 GM/DEXTROSE 100 ML IV SCH ×3 (06:53→22:59)
--- NOTE | 2017-11-16 07:34 | SOAPPROG ---
SOAP Progress Note Assessment/Plan: POD#1 Attempted minimally invasive converted to sternotomy mitral valve repair. Severe MR with severe posterior MVP- s/p MV Repair. Hemodynamically stable off Levophed since this am and weaning Dopamine. Will initiate antithrombotic prophylaxis with Coumadin. Target INR 2-3. Nonischemic dilated cardiomyopathy with preserved EF- Stable. Will consider starting Lasix if BP stable and off Dopa tomorrow. Acute postop blood loss anemia with coagulopathy - Stable s/p transfusion of PRBC and 2FFP. Chest tube drainage slowing down. Secondary thrombocytopenia- Improving s/p transfusion of 1pk Platelets. Plt count 93 (89). Will hold VTE prophylaxis for now. Renal- Function normal with normal renal lytes and good urine output. Dyslipidemia- Stable. Diet controlled. Pain- Controlled with Toradol and [place]. Deconditioning s/p surgery- Will start PT/OT. Encourage ambulation/IS. Plan: - Coumadin 2mg today. - Blakes to bulbs. - Continue Toradol and [place] for now. - Wrap and cap pacing wires. - D/c plascencia - D/c TLC and Rsoeanne. - Will transfer to the floor when off Dopa. Subjective: Patient reports improved nausea and good pain control on current regimen. Objective: Vital Signs Temp Pulse Resp BP Pulse Ox 37.3 C 62 25 H 105/53 L 94 11/16/17 06:50 11/16/17 06:50 11/16/17 06:50 11/16/17 06:50 11/16/17 06:50 Laboratory Results 11/16/17 04:10 11/16/17 04:10 11/15/17 11/16/17 11/17/17 05:59 05:59 05:59 Intake Total 5195 Output Total 3675 185 Balance 1520 -185 PT 16.0 SEC (12.0-15.0) H 11/16/17 04:10 INR 1.26 (0.83-1.16) H 11/16/17 04:10 Physical Exam - Physical Exam General Appearance: WD/WN, alert, no apparent distress Respiratory: lungs clear, decreased breath sounds (bases), other (sternum stable , sternotomy c/d/i) Cardiac/Chest: regular rate, rhythm, other (soft murmur LSB) Abdomen: normal bowel sounds, non-tender, soft Skin: warm/dry Extremities: other (minimal lower extremity edema) Neuro/Psych: alert, normal mood/affect, oriented x 3 ICD10 Worksheet Patient Problems: Problems Problem Status Onset Acute blood loss anemia Acute S/P MVR (mitral valve repair) Acute Severe mitral regurgitation Acute Hyperlipidemia Chronic Nonischemic dilated cardiomyopathy Chronic
[2017-11-16] MEDS: MUPIROCIN 2% 22 GM OINT NS SCH ×2 (07:54→23:00)
[2017-11-16] MEDS: SENNOSIDES/DOCUSATE SODIUM TAB PO SCH ×2 (07:55→23:00)
[2017-11-16] MEDS: PANTOPRAZOLE SODIUM 40 MG TAB PO SCH (07:55)
[2017-11-16] MEDS: HYDROCODONE/APAP 5/325 TAB PO PRN ×4 (08:36→22:58)
[2017-11-16] MEDS ORDERED: ASPIRIN 81 MG CHEWABLE TAB PO SCH (09:00)
[2017-11-16] MEDS ORDERED: ASPIRIN 81 MG CHEWABLE TAB TUBE PRN (09:00)
[2017-11-16] MEDS ORDERED: ALBUMIN 5% 250 ML IV ONE (11:55)
[2017-11-16] MEDS ORDERED: MAGNESIUM HYDROXIDE 30 ML UDCUP PO PRN (14:12)
[2017-11-16] MEDS ORDERED: BISACODYL 10 MG SUPP PR PRN (14:12)
[2017-11-16] MEDS ORDERED: CEPACOL LOZENGE PO PRN (14:12)
[2017-11-16] MEDS ORDERED: POLYETHYLENE GLYCOL 3350 17 GM PKT PO PRN (14:12)
--- NOTE | 2017-11-16 15:23 | ASMTCMCOM ---
CM Note CM Note Notes: Patient is POD #1 mitral valve repair. Initial PT eval suggests that patient will not have any discharge needs other than cardiac rehab. He lives with his . Case Management will be available if any discharge needs arise. Date Signed: 11/16/2017 03:23 PM Electronically Signed By:Michaelle Salinas RN
[2017-11-16] MEDS ORDERED: WARFARIN SODIUM 2 MG TAB PO ONE (16:00)
[2017-11-17] MEDS: KETOROLAC 15 MG/1 ML SDV IVP SCH ×5 (00:25→23:32)
[2017-11-17] MEDS: HYDROCODONE/APAP 5/325 TAB PO PRN ×4 (04:45→20:40)
[2017-11-17 04:46] LABS: PLATELET COUNT 68 10^3/uL (150-400)
[2017-11-17 04:52] LABS: INR 1.21 (0.83-1.16); PROTIME(PATIENT) 15.5 SEC (12.0-15.0)
[2017-11-17] MEDS: ceFAZolin 2 GM/DEXTROSE 100 ML IV SCH (06:15)
[2017-11-17] MEDS: HEPARIN 5,000 UNIT/0.5 ML SYR SC SCH ×3 (06:20→22:48)
--- NOTE | 2017-11-17 07:26 | SOAPPROG ---
SHERIF Progress Note Assessment/Plan: POD#2 Attempted minimally invasive converted to sternotomy mitral valve repair. Severe MR with severe posterior MVP- s/p MV Repair. Off Dopamine since yesterday. Antithrombotic prophylaxis with Coumadin as well as ASA held today d /t low platelets. Target INR 2-3. Nonischemic dilated cardiomyopathy with preserved EF- Stable. Will hold off on starting Lasix due to borderline hypotension. Acute postop blood loss anemia with coagulopathy - Stable s/p transfusion of PRBC and 2FFP. Chest tube drainage persists with 520mls/12hrs and 1050mls/ 24hrs. Secondary thrombocytopenia- Worsening s/p transfusion of 1pk Platelets postop. Plt count 68 (93). HIT pending. Will hold ASA and SQ hep for now. Keep pacing wires. Renal- Function normal with normal renal lytes and adequate urine output. Dyslipidemia- Stable. Diet controlled. Pain- Controlled with Toradol and [place]. Deconditioning s/p surgery- Continue PT/OT. Encourage ambulation/IS. Disposition- Transfer to the floor when bed available. Subjective: Patient reports poor pain control last pm, however improved today. Objective: Vital Signs Temp Pulse Resp BP Pulse Ox 37.0 C 63 21 H 97/51 L 94 11/17/17 04:00 11/17/17 04:00 11/17/17 04:00 11/17/17 04:00 11/17/17 04:00 Laboratory Results 11/17/17 04:30 11/17/17 04:30 11/16/17 11/17/17 11/18/17 05:59 05:59 05:59 Intake Total 5195 1704 Output Total 3675 1985 Balance 1520 -281 PT 15.5 SEC (12.0-15.0) H 11/17/17 04:30 INR 1.21 (0.83-1.16) H 11/17/17 04:30 Physical Exam - Physical Exam General Appearance: WD/WN, alert, no apparent distress Respiratory: lungs clear, decreased breath sounds (bases) Cardiac/Chest: regular rate, rhythm, other (No murmurs or rub. Sternum stable, sternotomy c/d/i. ) Abdomen: normal bowel sounds, non-tender, soft Skin: warm/dry Extremities: other (Mild lower extremity edema) Neuro/Psych: alert, normal mood/affect, oriented x 3 ICD10 Worksheet Patient Problems: Problems Problem Status Onset Acute blood loss anemia Acute S/P MVR (mitral valve repair) Acute Severe mitral regurgitation Acute Hyperlipidemia Chronic Nonischemic dilated cardiomyopathy Chronic
[2017-11-17] MEDS: PANTOPRAZOLE SODIUM 40 MG TAB PO SCH (09:01)
[2017-11-17] MEDS: SENNOSIDES/DOCUSATE SODIUM TAB PO SCH ×2 (09:01→22:49)
[2017-11-17] MEDS: MUPIROCIN 2% 22 GM OINT NS SCH (09:02)
[2017-11-18 05:46] LABS: INR 1.11 (0.83-1.16); PROTIME(PATIENT) 14.5 SEC (12.0-15.0)
[2017-11-18] MEDS: KETOROLAC 15 MG/1 ML SDV IVP SCH (06:01)
[2017-11-18] MEDS: HYDROCODONE/APAP 5/325 TAB PO PRN ×3 (06:16→20:32)
--- NOTE | 2017-11-18 06:53 | SOAPPROG ---
SOAP Progress Note Assessment/Plan: Assessment: POD#3 Attempted minimally invasive converted to sternotomy mitral valve repair. Annuloplasty with 30 mm Serna Physio ring. Prophylactic AtriClip ligation of the left atrial appendage. MVP with severe MR - Amenable to complex repair. Stable early postop course. Antithrombotic prophylaxis with Coumadin once coagulopathy resolved. Target INR 2-3, duration pending stability of rhythm. Adjunctive baby ASA (as allowed by plt count) until INR stable in therapeutic range. Nonischemic dilated cardiomyopathy with preserved LVEF - Stable. No prolonged vasoactive support. Adequately diuresing moderate volume overload. Postoperative atrial fibrillation - with controlled ventricular response. Initiation of BB as allowed by BP. Antithrombotic prophylaxis as per MVrpr. Acute postop blood loss anemia with thrombocytopenia and coagulopathy - Stable s /p transfusion of 1u PRBC, 2u FFP and 1u Plt. Platelet count yet to plateau, likely d/t NSAID use. Precautionary HIT pending. No evidence active bleeding. Plan: Start gentle diuresis. Start metoprolol 12.5 mg BID w conservative hold parameters. Stop toradol and add duragesic patch. Start coumadin 2.5 mg today. Keep CTs and TCPWs one more day. Baseline postop echo tomorrow. Cont inc activity and pulm toilet. 11/18/17 07:54 Subjective: Doing ok. Improving mobility. Adequate analgesia. Objective: Vital Signs Temp Pulse Resp BP Pulse Ox 36.8 C 74 18 106/66 94 11/18/17 04:00 11/18/17 04:00 11/18/17 04:00 11/18/17 04:00 11/18/17 04:00 Laboratory Results 11/18/17 05:10 11/18/17 05:10 11/17/17 11/18/17 11/19/17 05:59 05:59 05:59 Intake Total 1704 1000 Output Total 1985 1335 Balance -281 -335 PT 14.5 SEC (12.0-15.0) 11/18/17 05:10 INR 1.11 (0.83-1.16) 11/18/17 05:10 HR 70s-80s w intermittent AF. SBPs 90s w stable UOP and renal fx. CTOP thinning. CXR-> left basilar atelectasis, tiny stable rt apical PTX. Plt count cont to dip. HIT pending. Physical Exam - Physical Exam General Appearance: alert, no apparent distress Respiratory: crackles (bases), other (blakes x 2 to bulb suction, thin serosang drainage) Cardiac/Chest: regular rate, rhythm, other (Sternum grossly stable. Sternotomy, rt thoracotomy and rt groin CDI) Peripheral Pulses: 0: dorsalis-pedis (L) Abdomen: non-tender, soft Skin: warm/dry Extremities: swelling (1+ gen) ICD10 Worksheet Patient Problems: Problems Problem Status Onset Acute blood loss anemia Acute S/P MVR (mitral valve repair) Acute Severe mitral regurgitation Acute Hyperlipidemia Chronic Nonischemic dilated cardiomyopathy Chronic
[2017-11-18] MEDS: HEPARIN 5,000 UNIT/0.5 ML SYR SC SCH (07:03)
[2017-11-18] MEDS: SENNOSIDES/DOCUSATE SODIUM TAB PO SCH (08:20)
[2017-11-18] MEDS: PANTOPRAZOLE SODIUM 40 MG TAB PO SCH (08:32)
[2017-11-18] MEDS ORDERED: fentaNYL 25 MCG PATCH TD ONE (10:00)
[2017-11-18] MEDS: FUROSEMIDE 40 MG TAB PO SCH (14:36)
[2017-11-18] MEDS ORDERED: WARFARIN SODIUM 2.5 MG TAB PO ONE (16:00)
[2017-11-18] MEDS: POTASSIUM CL 20 MEQ TAB PO SCH ×2 (16:19→20:33)
--- NOTE | 2017-11-18 18:23 | GOP ---
[f rep st] OPERATIVE REPORT DATE OF OPERATION: 11/15/2017 SURGEON: Alexei Castaneda DO SALES AND SERVICE ADVISOR: Jaden Serrato PA-C ANESTHESIOLOGIST: Hector Farr MD. PREOPERATIVE DIAGNOSIS: Severe myxomatous valve degeneration with severe mitral insufficiency and di lated left atrial and left ventricular chambers. POSTOPERATIVE DIAGNOSIS: Severe myxomatous valve degeneration with severe mitral insufficiency and d ilated left atrial and left ventricular chambers. PROCEDURE PERFORMED: Mitral valve repair with triangular resection of P2, chordal reconstruction to P2, and closure of cleft between the P2 and P3, as well as a #30 physio annuloplasty ring via initial ly right thoracotomy, converted to open sternotomy. FINDINGS: DESCRIPTION OF PROCEDURE: Patient was consented for surgery, brought to the operating room intubated . Monitoring lines were placed. Transesophageal echo confirmed a flail P2 with a large dilated left atrium and left ventricle with preserved systolic function. Initially, a 4th intercostal space thor acotomy in the anterior axillary line was performed with retraction of the lung and diaphragm in a st andard fashion. We then heparinized the patient and cannulated a good quality femoral artery and vei n with a 21-Occitan arterial cannula and a 25 long venous cannula. Fluoro was used to confirmed venou s placement. We then initiated cardiopulmonary bypass. Opened the pericardium staying 3 cm anterior to the phrenic nerve. Retraction sutures were placed. We then placed an antegrade cardioplegia nee dle and through a separate stab wound incision brought a [place]alee clamp occluding the aorta with ante grade cardioplegia administered. Cardioplegic arrest was obtained and was repeated intermittently th roughout the procedure. We then exposed the left atrium with a [place] retractor brought through the a nterior chest wall. Good exposure of the valve was identified. Circumferential annuloplasty sutures were placed with 2-0 Tycron. We then triangular resected P2 which was flail. P1 and P3 were normal . These were reapproximated with interrupted Overton-Alex sutures. We then attempted placement of a Gor e-Alex chord to P2 to the posterior papillary muscle. However, exposure was extremely difficult becau se of this nieves's deep chest and inability to access good exposure in the left ventricle. For that re ason, I converted to sternotomy, reapplied the cross-clamp in the standard fashion to the sternotomy, re-arrested the heart and completed the operation by creating Overton-Alex sutures x2 to the P2 segment. There was an excellent coaptation. There was a cleft between P2 and P3, which was closed with a si ngle 4-0 Prolene suture. Distention of the ventricle revealed no regurgitation. I then seated a 30 mm physio ring measuring at the size of the anterior leaflet and the interchordal distance. This was secured with cor-knots. Left atrium was closed. The cross-clamp was removed with suction on the as cending aortic vent and intermittent aspiration through the LV apex. Spontaneous cardiac activity wa s noted to resume. The patient was then weaned from bypass. Initially, he was V-paced with some res idual mitral regurgitation. However, after resting on pump for a while and then re-weaning from bypa ss, the mitral regurg resolved, which was felt to be due to papillary muscle dysfunction after relati vely long cross-clamp period. There was no regurgitation at the completion of the procedure and good ventricular function was preserved as per preop. The heparin was reversed with protamine. The rohan shauna was removed and oversewn. Four pacing wires were placed. One right pleural and [address] ain were placed. The thymic fat and pericardium were closed anteriorly. The femoral artery and vein were primarily closed after removal of the cannulas. All chest incisions were closed in standard fa shion. The patient was returned to ICU in stable condition. /[id number]/MODL
[2017-11-18] MEDS: METOPROLOL TARTRATE 25 MG TAB PO SCH (20:31)
[2017-11-18] MEDS ORDERED: SENNOSIDES/DOCUSATE SODIUM TAB PO PRN (21:00)
[2017-11-19] MEDS: HYDROCODONE/APAP 5/325 TAB PO PRN ×4 (05:36→21:14)
[2017-11-19 06:41] LABS: INR 1.05 (0.83-1.16); PROTIME(PATIENT) 13.9 SEC (12.0-15.0)
--- NOTE | 2017-11-19 07:02 | SOAPPROG ---
SOAP Progress Note Assessment/Plan: Assessment: POD#4 Attempted minimally invasive converted to sternotomy mitral valve repair. Annuloplasty with 30 mm Serna Physio ring. Prophylactic AtriClip ligation of the left atrial appendage. MVP with severe MR - Amenable to complex repair. Stable early postop course. Antithrombotic prophylaxis with Coumadin initiated after coagulopathy resolved. Target INR 2-3, duration pending stability of rhythm. Adjunctive baby ASA until INR stable in therapeutic range. Nonischemic dilated cardiomyopathy with preserved LVEF - Stable. No prolonged vasoactive support. Adequately diuresing moderate volume overload. Postoperative atrial fibrillation - with controlled ventricular response. BB started and to be uptitrated as tolerated. Antithrombotic prophylaxis as per MVrpr. Acute postop blood loss anemia with thrombocytopenia and coagulopathy - Stable s /p transfusion of 1u PRBC, 2u FFP and 1u Plt. Platelet count rebound noted. Precautionary HIT pending but likely negative. No evidence active bleeding. Plan: TCPWs and mediastinal drain removed. Intensify diuresis. Cont metoprolol 12.5 mg BID w conservative hold parameters. Start baby ASA. Increase coumadin to 5 mg today. Baseline postop echo. Cont inc activity and pulm toilet. Dispo - Anticipate home without services in 1-2 days. 11/19/17 07:00 Subjective: Feels well. Improving mobility and stamina. Satisfactory analgesia. Objective: Vital Signs Temp Pulse Resp BP Pulse Ox 36.9 C 68 16 112/62 97 11/19/17 04:00 11/19/17 04:00 11/19/17 04:00 11/19/17 04:00 11/19/17 04:00 Laboratory Results 11/19/17 05:40 11/19/17 05:40 11/18/17 11/19/17 11/20/17 05:59 05:59 05:59 Intake Total 1000 1250 350 Output Total 1335 1020 200 Balance -335 230 150 PT 13.9 SEC (12.0-15.0) 11/19/17 05:40 INR 1.05 (0.83-1.16) 11/19/17 05:40 Stable HR, rhythm and BP. Wt down 1.5 kg despite balanced appearance of I/Os. Pleural CTOP approaching removal criteria. Platelets appear to be rebounding. INR yet to budge. Physical Exam - Physical Exam General Appearance: alert, no apparent distress Respiratory: lungs clear (grossly), other (blakes x 2 to bulb suction, serosang drainage. Med drain removed without incident.) Cardiac/Chest: regular rate, rhythm, friction rub, other (Sternotomy and rt thoracotomy CDI. A&V wires removed without difficulty.) Abdomen: non-tender, soft Skin: warm/dry Extremities: swelling (1+ gen) ICD10 Worksheet Patient Problems: Problems Problem Status Onset Acute blood loss anemia Acute S/P MVR (mitral valve repair) Acute Severe mitral regurgitation Acute Hyperlipidemia Chronic Nonischemic dilated cardiomyopathy Chronic
[2017-11-19] MEDS: PANTOPRAZOLE SODIUM 40 MG TAB PO SCH (09:34)
[2017-11-19] MEDS: ASPIRIN EC 81 MG TAB PO SCH (09:34)
[2017-11-19] MEDS: FUROSEMIDE 40 MG TAB PO SCH ×2 (09:34→14:33)
[2017-11-19] MEDS: METOPROLOL TARTRATE 25 MG TAB PO SCH ×2 (09:35→21:14)
[2017-11-19] MEDS: POTASSIUM CL 20 MEQ TAB PO SCH ×2 (09:35→21:17)
--- NOTE | 2017-11-19 13:02 | ECHO ---
[email or web address] [address] [address] Main: [phone] Fax: Transthoracic Echocardiogram Name: ANDRY WARE MR#: [id number] Study Date: 11/19/2017 Study Time: 09:35 AM Date of : 1960 Age: 57 year(s) Height: 180.3 cm (71 in.) Weight: 97.07 kg (214 lb.) BSA: 2.17 m2 Gender: Male Examination: Echo Indication: Baseline postop - complex MV repair/#30 luke physio ring Image Quality: Contrast: Requested by: Renata Fonseca BP: / Heart Rate: Rhythm: Indication: Baseline postop - complex MV repair/#30 luke physio ring Procedure Staff Safety Risk Lead: Lu Ramírez Reading Physician: Garcia Bach Requesting Provider: Conclusions: Normal global systolic LV function. The ejection fraction is estimated to be 60-65 %. Mild mitral valve regurgitation is present. An annuloplasty ring is noted in the mitral valve position. MV peak velocity was 11mmHG. MV mean velocity was 3 mmHG. MV chordal SUNDAY causing no LVOT gradient.. Trivial aortic valve regurgitation. Mild tricuspid regurgitation is present. Mildly dilated ascending aorta 4.4cm. Trivial anterior pericardial effusion. Measurements: Chambers Valvular Assessment AV/MV Valvular Assessment TV/PV Normal Normal Normal Name Value Range Name Value Range Name Value Range Ao Samantha (2D): 4.4 cm (1.4 cm-2.6 AV meanP mmHg ( - ) TR Vmax: 2.02 mm/s ( - ) cm) MV meanP mmHg ( - ) TR PGmax: 16 mmHg ( - ) IVSd (2D): 1.0 cm (0.6 cm-1.1 MV PHT: 0.140 s ( - ) syst. PAP: 21 mmHg ( - ) cm) MVA (PHT): 1.6 s ( - ) LVDd (2D): 6.1 cm (4.2 cm-5.9 cm) LVDs (2D): 4.2 cm (2.1 cm-4 cm) LVPWd (2D): 0.9 cm (0.6 cm-1 cm) LVEF (2D): 59 (>=54 %) EF Range: 60-65 % Patient: ANDRY WARE Study Date: 11/19/2017 Page 1 of 2 09:35 AM Continued Measurements: Chambers Valvular Assessment AV/MV Valvular Assessment TV/PV Name Value Name Value Name Value LADs: 4.8 cm MV DecTime: 482 m/s CVP (est.): 5 mmHg LADs Lon.5 cm MV VTI: 52.80 cm LA Area: 28.1 cm2 Additional Vessels Name Value Ao Ascendin.2 cm Findings: Left Ventricle: Mildly dilated left ventricle. No LV hypertrophy. Normal global systolic LV function. The ejection fraction is estimated to be 60-65 %. No regional wall motion abnormality. Right Ventricle: Normal size right ventricle. Left Atrium: The left atrium is mildly dilated. Right Atrium: The right atrium is normal in size. Mitral Valve: Mild mitral valve regurgitation is present. An annuloplasty ring is noted in the mitral valve position. MV peak velocity was 11mmHG. MV mean velocity was 3 mmHG. MV chordal SUNDAY causing no LVOT gradient.. Aortic Valve: The aortic valve is normal in appearance and function. Trivial aortic valve regurgitation. Tricuspid Valve: The tricuspid valve is normal in appearance and function. Mild tricuspid regurgitation is present. Pulmonic Valve: The pulmonic valve is normal in appearance and function. Aorta: The aorta is normal. Mildly dilated ascending aorta 4.4cm. Pericardium: Trivial anterior pericardial effusion. (No Signature Object) Patient: ANDRY WARE Study Date: 11/19/2017 Page 2 of 2 09:35 AM D:_[id number]
[2017-11-19] MEDS: HEPARIN 5,000 UNIT/0.5 ML SYR SC SCH ×2 (14:33→21:16)
[2017-11-19] MEDS ORDERED: WARFARIN SODIUM 5 MG TAB PO ONE (16:00)
[2017-11-20] MEDS: HYDROCODONE/APAP 5/325 TAB PO PRN ×4 (03:09→20:05)
[2017-11-20 03:56] LABS: INR 1.08 (0.83-1.16); PROTIME(PATIENT) 14.2 SEC (12.0-15.0)
[2017-11-20] MEDS: HEPARIN 5,000 UNIT/0.5 ML SYR SC SCH ×3 (05:51→23:36)
--- NOTE | 2017-11-20 08:00 | SOAPPROG ---
SOAP Progress Note Assessment/Plan: POD#5: Attempted minimally invasive converted to sternotomy mitral valve repair. Annuloplasty with 30 mm Serna Physio ring. Prophylactic AtriClip ligation of the left atrial appendage. MVP with severe MR - Amenable to complex repair. Stable early postop course. Antithrombotic prophylaxis with Coumadin, target INR 2-3, and baby ASA. Nonischemic dilated cardiomyopathy with preserved LVEF - Stable. Postoperative atrial fibrillation - with controlled ventricular response. BB started and to be uptitrated as tolerated. Antithrombotic prophylaxis as per MVrpr. Acute postop blood loss anemia with thrombocytopenia and coagulopathy - Stable s /p transfusion of 1u PRBC, 2u FFP and 1u Plt. Platelet count rebound noted. Precautionary HIT pending but likely negative. No evidence active bleeding. Subjective: Denies pain/SOB. Feels good about going home tomorrow. Objective: Vital Signs Temp Pulse Resp BP Pulse Ox 36.6 C 67 18 110/70 93 11/20/17 04:00 11/20/17 04:00 11/20/17 04:00 11/20/17 04:00 11/20/17 04:00 Laboratory Results 11/19/17 05:40 11/20/17 03:20 11/19/17 11/20/17 11/21/17 05:59 05:59 05:59 Intake Total 1250 1890 Output Total 1281 1285 Balance -31 605 PT 14.2 SEC (12.0-15.0) 11/20/17 03:20 INR 1.08 (0.83-1.16) 11/20/17 03:20 Physical Exam - Physical Exam General Appearance: WD/WN, alert, no apparent distress EENT: No scleral icterus (R), No scleral icterus (L) Neck: normal inspection Respiratory: No respiratory distress Cardiac/Chest: regular rate, rhythm Abdomen: non-tender, soft, No distended Skin: normal color, warm/dry Extremities: pedal edema (trace) Neuro/Psych: no motor/sensory deficits, alert, normal mood/affect, oriented x 3 ICD10 Worksheet Patient Problems: Problems Problem Status Onset Acute blood loss anemia Acute S/P MVR (mitral valve repair) Acute Severe mitral regurgitation Acute Hyperlipidemia Chronic Nonischemic dilated cardiomyopathy Chronic
[2017-11-20] MEDS: METOPROLOL TARTRATE 25 MG TAB PO SCH ×2 (08:19→20:05)
[2017-11-20] MEDS: PANTOPRAZOLE SODIUM 40 MG TAB PO SCH (08:19)
[2017-11-20] MEDS: FUROSEMIDE 40 MG TAB PO SCH ×2 (08:19→14:45)
[2017-11-20] MEDS: ASPIRIN EC 81 MG TAB PO SCH (08:19)
[2017-11-20] MEDS: POTASSIUM CL 20 MEQ TAB PO SCH ×2 (08:19→20:04)
[2017-11-20] MEDS ORDERED: WARFARIN SODIUM 5 MG TAB PO ONE (16:00)
[2017-11-21] MEDS: HYDROCODONE/APAP 5/325 TAB PO PRN ×4 (02:19→14:26)
[2017-11-21] MEDS: HEPARIN 5,000 UNIT/0.5 ML SYR SC SCH ×2 (06:02→16:08)
[2017-11-21 06:24] LABS: INR 1.14 (0.83-1.16); PROTIME(PATIENT) 14.8 SEC (12.0-15.0)
--- NOTE | 2017-11-21 06:59 | SOAPPROG ---
SOAP Progress Note Assessment/Plan: POD#6: Attempted minimally invasive converted to sternotomy mitral valve repair. Annuloplasty with 30 mm Serna Physio ring. Prophylactic AtriClip ligation of the left atrial appendage. MVP with severe MR - Amenable to complex repair. Stable early postop course. Antithrombotic prophylaxis with Coumadin, target INR 2-3, and baby ASA. Nonischemic dilated cardiomyopathy with preserved LVEF - Stable. Postoperative atrial fibrillation - with controlled ventricular response. BB started and to be uptitrated as tolerated. Antithrombotic prophylaxis as per MVrpr. Acute postop blood loss anemia with thrombocytopenia and coagulopathy - Stable s /p transfusion of 1u PRBC, 2u FFP and 1u Plt. Platelet count rebound noted. Precautionary HIT negative. No evidence active bleeding. Disposition - home today without services Subjective: Feels well. Ready to go home. Objective: Vital Signs Temp Pulse Resp BP Pulse Ox 36.6 C 69 17 99/62 L 95 11/21/17 06:05 11/21/17 06:05 11/21/17 06:05 11/21/17 06:05 11/21/17 06:05 Laboratory Results 11/19/17 05:40 11/20/17 03:20 11/20/17 11/21/17 11/22/17 05:59 05:59 05:59 Intake Total 1890 1000 250 Output Total 1285 325 200 Balance 605 675 50 PT 14.8 SEC (12.0-15.0) 11/21/17 06:00 INR 1.14 (0.83-1.16) 11/21/17 06:00 Physical Exam - Physical Exam General Appearance: WD/WN, alert, no apparent distress EENT: No scleral icterus (R), No scleral icterus (L) Neck: normal inspection Respiratory: No respiratory distress Cardiac/Chest: regular rate, rhythm Abdomen: non-tender, soft, No distended Skin: normal color, warm/dry Extremities: No pedal edema Neuro/Psych: no motor/sensory deficits, alert, normal mood/affect, oriented x 3 ICD10 Worksheet Patient Problems: Problems Problem Status Onset Acute blood loss anemia Acute S/P MVR (mitral valve repair) Acute Severe mitral regurgitation Acute Hyperlipidemia Chronic Nonischemic dilated cardiomyopathy Chronic
[2017-11-21] MEDS ORDERED: POTASSIUM CL 20 MEQ TAB PO SCH (09:00)
[2017-11-21] MEDS ORDERED: FUROSEMIDE 40 MG TAB PO SCH (09:00)
[2017-11-21] MEDS: PANTOPRAZOLE SODIUM 40 MG TAB PO SCH (09:33)
[2017-11-21] MEDS: ASPIRIN EC 81 MG TAB PO SCH (09:33)
[2017-11-21] MEDS: METOPROLOL TARTRATE 25 MG TAB PO SCH (09:41)
[2017-11-21 12:00] VITALS: BP 96/54; PULSE 78; RESP 16; TEMP 98.2
--- NOTE | 2017-11-21 13:27 | PDHOMEO2F ---
Home Oxygen Face to Face Home Orders: I certify that a physician or a nurse practitioner or physician's internal medicine physician assistant has had a [id number] encounter with this patient on the date of this order due to the diagnosis listed, which relates to the primary reason the patient requires home oxygen. Alternative treatments have been tried, or considered, and deemed ineffective. It is anticipated that supplemental oxygen will result in improvement with treatment. Home oxygen qualifying diagnosis: CHF< hypoxemia, atelectasis, pleural effusions Home oxygen secondary diagnosis: mitral insufficiency SpO2 on room air (%): 87 Frequency of home oxygen needed: continuous Home oxygen liters per minute: 2 Home oxygen delivery device: nasal cannula Concentrator: Yes E-tanks for mobility and back up: Yes If ordering portable O2, is the patient mobile in the home?: Yes I certify that, based on these findings, the home oxygen is medically necessary for this patient for the following length of time. Length of time home oxygen needed: 1 month
--- NOTE | 2017-11-21 13:38 | PDDCSUM ---
Discharge Summary Discharge Summary: ADMISSION DATE: 11/15/17 DISCHARGE DATE: 11/21/17 DISCHARGE DX: 1. Severe mitral regurgitation 2. Dilated cardiomyopathy 3. Postoperative paroxysmal atrial fibrillation 4. Acute blood loss anemia with coagulopathy PROCEDURES 11/15/17, Alexei Castaneda: 1. Right thoracotomy with conversion to sternotomy complex mitral valve annuloplasty with #30 Physio ring 2. CPB access via right femoral vein and artery with primary repair HOSPITAL COURSE BY PROBLEM LIST 1. Severe mitral regurgitation - s/p complex repair. Thromboprophylaxis with Coumadin, INR goal 2-3, duration 3 months. 2. Dilated cardiomyopathy - medically optimized with Lasix and metoprolol. 3. Paroxysmal atrial fibrillation - conversion to SR with metoprolol. Thromboprophylaxis with Coumadin, duration at least 3 months as per MVA, or longer depending on stability of rhythm. 4. Acute blood loss anemia with coagulopathy - stable s/p 1U PRBC, 1U platelets , 2U FFP. CONDITION Good DISPOSITION Home ACTIVITY Pt was instructed on sternal precautions, activity limitations, and which problems to call [facility] with. Please see Discharge Plan in chart for specifics. DISCHARGE MEDICATIONS New: 1. Acetaminophen [Tylenol 325mg (*)] 325 - 650 mg PO Q4HRS PRN 2. Aspirin EC [Aspirin EC 81 mg (*)] 81 mg PO DAILY 3. Furosemide [Lasix 40 MG (*)] 40 mg PO DAILY 4. Hydrocodone/APAP 5/325 [[place] 5/325 (*)] 1 - 2 tab PO Q4HRS PRN 5. Metoprolol Tartrate [Lopressor 25 mg (*)] 12.5 mg PO BID 6. Potassium Cl [Klor-Con 20 meq (*)] 20 meq PO DAILY 7. Warfarin Sodium [Coumadin 5MG (*)] 5 mg PO DAILY PENDING STUDIES/LABS 1. CXR prior to follow-up 2. INR 11/[address] [facility] F/U APPOINTMENTS 1. Alexei Castaneda - 11/26/17, 9:45 AM
[2017-11-21 13:53] VITALS: O2SAT 86
[2017-11-21] MEDS ORDERED: WARFARIN SODIUM 5 MG TAB PO ONE (16:00)
--- NOTE | 2017-11-22 09:20 | ASDISCHSUM ---
Discharge Information Plan Status:Home with No Needs Medically Cleared to Leave:11/20/2017 Discharge Date:11/21/2017 05:44 PM CM D/C Disposition: ADT D/C Disposition:Home, Routine, Self-Care Projected Discharge Date:11/21/2017 12:00 AM Transportation at D/C: Discharge Delay Reason: Follow-Up Date:11/21/2017 12:00 AM Discharge Slot: Final Diagnosis: Placement Information Patient Contact Information Contact Name:ANNETTA Relationship: Address:[address] City:[place] Alternate Phone: [facility]/Zip Code:[place] [address] Email: Financial Information Financial Class: Primary Plan Desc:MEDICAID HE[employer] FIRST [place]IM Primary Plan Number:[id number] Secondary Plan Desc: Secondary Plan Number: Assessment Information [facility] CM Progress Note CM Note CM Note Notes: Patient is POD #1 mitral valve repair. Initial PT eval suggests that patient will not have any discharge needs other than cardiac rehab. He lives with his . Case Management will be available if any discharge needs arise. Date Signed: 11/16/2017 03:23 PM Electronically Signed By:Michaelle Salinas RN Case Management Discharge Plan Note Case Management Discharge Discharge Order Complete? Answers: Yes Patient to Obtain Answers: Independently Medications Transportation Arranged Answers: Family/Friends EMTALA Complete Answers: No Case Management Transport Answers: No Form Complete Faxed Final Orders Answers: No Agency/Facility Transfer Answers: No Report Printed & Faxed to Receiving Agency Family Notified Answers: Yes Discharge Comments Notes: Pt is being discharged today. Pt requires o2 for d/c. RT notified CM that pts Medicaid . [facility] [employer] came and met w/ pt. Pt reports that he has been working w/ [facility] to get his Medicaid reinstated. Med Data will contact [facility] tomorrow to confirm. Pt will have to pre pay for o2 and have Medicaid reimburse. CM available for changes. Plan: Independent Date Signed: 11/21/2017 04:16 PM Electronically Signed By:KRISTEN Doty Intervention Information
== END 2017-11-21 17:44 | disposition home or self-care (01) | DRG 220 ==
LOC: F2W 11-15 05:17 → F2N 11-15 07:33 → F2W 11-18 18:45
PROVIDERS: ADMIT Thoracic Surgery (Cardiothoracic Vascular Surgery); ATTEND Thoracic Surgery (Cardiothoracic Vascular Surgery)
PROC: 02UG0JZ Supplement Mitral Valve with Synthetic Substitute, Open Approach (ICD-10-PCS; principal; 2017-11-15 07:15)
PROC: 5A1221Z Performance of Cardiac Output, Continuous (ICD-10-PCS; principal; 2017-11-15 07:15)
PROC: 02BG0ZZ Excision of Mitral Valve, Open Approach (ICD-10-PCS; principal; 2017-11-15 07:15)
PROC: 30233L1 Transfusion of Nonautologous Fresh Plasma into Peripheral Vein, Percutaneous Approach (ICD-10-PCS; 2017-11-15 07:15)
PROC: 30233R1 Transfusion of Nonautologous Platelets into Peripheral Vein, Percutaneous Approach (ICD-10-PCS; 2017-11-15 07:15)
DX: I34.0 Nonrheumatic mitral (valve) insufficiency (principal); D62 Acute posthemorrhagic anemia; I42.0 Dilated cardiomyopathy; I50.32 Chronic diastolic (congestive) heart failure; I48.0 Paroxysmal atrial fibrillation; D69.59 Other secondary thrombocytopenia; I27.20 Pulmonary hypertension, unspecified; E78.5 Hyperlipidemia, unspecified
CPT/HCPCS: 82947-QW; 86022-90; 97110-GP; 97116-GP; 97161-GP; 97165-GO; 97530-GO; 97530-GP; 97535-GO; J0153; J0171; J0282; J0690; J1170; J1265; J1644; J1815; J1885; J2001; J2150; J2250; J2260; J2370; J2405; J2704; J2720; J2930; J3010; J7060; P9016; P9017; P9035; P9041

== ENCOUNTER 2017-11-25 09:50 | Observation (INO) | payer MEDICAID ==
--- NOTE | 2017-11-25 10:16 | CPEKG ---
Heart Rate: 145 RR Interval: 414 P-R Interval: 98 QRSD Interval: 88 QT Interval: 288 QTC Interval: 448 P [place]: 0 QRS [place]: -50 T Wave [place]: 117 EKG Severity - ABNORMAL ECG - EKG Impression: SINUS TACHYCARDIA EKG Impression: LEFT ANTERIOR FASCICULAR BLOCK Electronically Signed By: Ochoa Duarte 25-Nov-2017 15:23:28
[2017-11-25 10:35] LABS: PLATELET COUNT 366 10^3/uL (150-400)
--- NOTE | 2017-11-25 10:46 | EDPHY ---
H & P Time Seen by Provider: 11/25/17 10:45 HPI/ROS: Chief complaint. arrhythmia HPI. 57-year-old male here with fast heart rate. Began this morning. He measured at about 140. He also had a similar about 10 min episode yesterday. Some shortness of breath and fatigue but no chest discomfort. Mitral valve replacement November 18. No unusual leg pain or swelling. No fever. He has not taken his morning medications yet. He does have some sweating ROS Constitutional. Fatigue Eyes. no problems with vision ENT. no sore throat, no nasal drainage Cardiovascular. No chest pain but palpitations Respiratory. Shortness of breath Abdominal. no abdominal pain, no nausea/vomiting, no diarrhea . no problems urinating MS. no calf pain/swelling, no neck/back pain, no joint pain Skin. no rash Lymph. no swollen glands Neuro. no headache, no dizziness, no difficulty walking or with speech Past Medical/Surgical History: Elbow surgery, mitral valve prolapse, mitral valve repair Social History: , nonsmoker, no alcohol Smoking Status: Never smoked Physical Exam: General Appearance: Alert well-developed male moderate distress vital signs show heart rate 127, blood pressure 93/70 Eyes: Pupils equal and round no pallor or injection. ENT, Mouth: Mucous membranes are moist. Respiratory: There are no retractions, lungs are clear to auscultation. Cardiovascular: Tachycardia Gastrointestinal: Abdomen is soft and nontender, no masses, bowel sounds normal. Neurological: Awake and alert, sensory and motor exams grossly normal. Skin: Warm and dry, no rashes. Musculoskeletal: Neck is supple nontender. Extremities symmetrical, full range of motion. Psychiatric: Patient is oriented X 3, there is no agitation. Constitutional: Initial Vital Signs Temperature (C) 36.4 C 11/25/17 09:55 Heart Rate 127 H 11/25/17 09:55 Respiratory Rate 18 11/25/17 09:55 Blood Pressure 93/70 L 11/25/17 09:55 O2 Sat (%) 94 11/25/17 09:55 O2 Delivery Mode Room Air O2 (L/minute) 2 Allergies/Adverse Reactions: No Known Allergies Allergy (Verified 11/25/17 09:59) Home Medications: Medication Instructions Recorded Acetaminophen [Tylenol 325mg (*)] 325 - 650 mg PO Q4HRS PRN tab 11/21/17 Aspirin EC [Aspirin EC 81 mg (*)] 81 mg PO DAILY #30 tab 11/21/17 Furosemide [Lasix 40 MG (*)] 40 mg PO DAILY #30 tab 11/21/17 Metoprolol Tartrate [Lopressor 25 12.5 mg PO BID #30 tab 11/21/17 mg (*)] Potassium Cl [Klor-Con 20 meq (*)] 20 meq PO DAILY #30 tab 11/21/17 Warfarin Sodium [Coumadin 5MG (*)] 5 mg PO DAILY #30 tab 11/21/17 oxyCODONE/APAP 5/325 [Percocet 1 tab PO 11/25/17 5/325 (*)] Medical Decision Making - Diagnostics Imaging Results: Imaging Impressions Chest X-Ray 11/25/17 10:25 Impression: 1. Elevation of the right hemidiaphragm with minimal blunting of the costophrenic angles which could be related to atelectasis or trace effusions. 2. No visible pneumothorax. EKG atrial fibrillation, left axis. Left ear fascicular block. Rate 145 Repeat EKG shows atrial flutterer with ventricular response 118 Procedures: IV normal saline, monitor. Diltiazem bolus and drip Due to low blood pressure patient is given just 5 mg of diltiazem IV. It does slow him down to approximately 100. Blood pressure dropped as low as 60 systolic though comes back up to about 100 systolic. Currently / ED Course/Re-evaluation: I consulted discussed with Dr. Magalie Walker for Cardiology. I have contacted and discussed the case with Dr. bonnie finnegan who sent his PA to the emergency department. I have consulted and discussed the case with Dr. Guillen patient's regular assembler knife who comes to see the patient in the emergency department. He agrees with treatment and management and agrees to the admission I discussed findings of EKG, laboratory and echocardiogram results with the patient and family. I recommended admission and they agree Differential Diagnosis: Post mitral valve replacement the atrial fibrillation/flutter. Initially it looked like sinus rhythm as it was so regular. Patient has been somewhat hypotensive. Elevated troponin however I think that this is from his recent surgery. Critical Care Time: Critical care time exclusive procedures 40 min - Data Points Laboratory Results: Laboratory Results 11/25/17 10:24 11/25/17 10:24 01/11/25/17 11/25/17 10:24 10:24 10:24 WBC 10.93 10^3/uL H 10^3/uL (3.80-9.50) RBC 4.60 10^6/uL 10^6/uL (4.40-6.38) Hgb 13.5 g/dL L g/dL (13.7-17.5) Hct 40.0 % % (40.0-51.0) MCV 87.0 fL fL (81.5-99.8) MCH 29.3 pg pg (27.9-34.1) MCHC 33.8 g/dL g/dL (32.4-36.7) RDW 13.8 % % (11.5-15.2) Plt Count 366 10^3/uL 10^3/uL (150-400) MPV 10.1 fL fL (8.7-11.7) Neut % (Auto) 73.7 % % (39.3-74.2) Lymph % (Auto) 17.2 % % (15.0-45.0) Mills % (Auto) 5.8 % % (4.5-13.0) Eos % (Auto) 1.5 % % (0.6-7.6) Baso % (Auto) 0.9 % % (0.3-1.7) Nucleat RBC Rel Count 0.0 % % (0.0-0.2) Absolute Neuts (auto) 8.06 10^3/uL H 10^3/uL (1.70-6.50) Absolute Lymphs (auto) 1.88 10^3/uL 10^3/uL (1.00-3.00) Absolute Monos (auto) 0.63 10^3/uL 10^3/uL (0.30-0.80) Absolute Eos (auto) 0.16 10^3/uL 10^3/uL (0.03-0.40) Absolute Basos (auto) 0.10 10^3/uL 10^3/uL (0.02-0.10) Absolute Nucleated RBC 0.00 10^3/uL 10^3/uL (0-0.01) Immature Gran % 0.9 % % (0.0-1.1) Immature Gran # 0.10 10^3/uL 10^3/uL (0.00-0.10) PT 21.3 SEC H SEC (12.0-15.0) INR 1.84 H (0.83-1.16) APTT 44.4 SEC H SEC (23.0-38.0) Sodium 144 mEq/L mEq/L (135-145) Potassium 4.5 mEq/L mEq/L (3.5-5.2) Chloride 102 mEq/L mEq/L (97-110) Carbon Dioxide 27 mEq/l mEq/l (22-31) Anion Gap 15 mEq/L mEq/L (8-16) BUN 14 mg/dL mg/dL (7-23) Creatinine 1.0 mg/dL mg/dL (0.7-1.3) Estimated GFR > 60 Glucose 94 mg/dL mg/dL (70-100) Calcium 9.8 mg/dL mg/dL (8.5-10.4) Troponin I 11/25/17 10:15 WBC RBC Hgb Hct MCV MCH MCHC RDW Plt Count MPV Neut % (Auto) Lymph % (Auto) Mills % (Auto) Eos % (Auto) Baso % (Auto) Nucleat RBC Rel Count Absolute Neuts (auto) Absolute Lymphs (auto) Absolute Monos (auto) Absolute Eos (auto) Absolute Basos (auto) Absolute Nucleated RBC Immature Gran % Immature Gran # PT INR APTT Sodium Potassium Chloride Carbon Dioxide Anion Gap BUN Creatinine Estimated GFR Glucose Calcium Troponin I 0.354 ng/mL H ng/mL (0.000-0.034) Medications Given: Diltiazem HCl 125 mg/ Dextrose 125 mls @ 0 mls/hr IV CONT CHRISTIAN; Titrate PRN Reason: Protocol Stop: 05/24/18 12:59 Last Admin: 11/25/17 13:13 Dose: 125 mls Discontinued Medications Diltiazem HCl (Cardizem 25 Mg/5 Ml Vial) 5 mg IVP EDNOW ONE Stop: 11/25/17 12:29 Last Admin: 11/25/17 13:11 Dose: 5 mg Sodium Chloride (Ns) 1,000 mls @ 0 mls/hr IV EDNOW ONE; Wide Open PRN Reason: Protocol Stop: 11/25/17 11:01 Last Admin: 11/25/17 11:12 Dose: 1,000 mls Sodium Chloride (Ns) 1,000 mls @ 3,000 mls/hr IV ONCE ONE Stop: 11/25/17 12:34 Last Admin: 11/25/17 12:16 Dose: 1,000 mls Departure - Departure Disposition: [facility] Inpatient Acute Clinical Impression: S/P MVR (mitral valve repair) Atrial fibrillation Qualifiers: Atrial fibrillation type: unspecified Qualified Code(s): I48.91 - Unspecified atrial fibrillation Condition: Fair
[2017-11-25] MEDS ORDERED: DILTIAZEM 125 MG in D5W 125 ML IV ONE ×2 (11:00→12:28)
[2017-11-25] MEDS ORDERED: NS 1,000 ML IV ONE ×2 (11:00→12:15)
[2017-11-25] MEDS ORDERED: DILTIAZEM 25 MG/5 ML VIAL IVP ONE ×2 (11:00→12:28)
[2017-11-25 11:21] LABS: INR 1.84 (0.83-1.16); PROTIME(PATIENT) 21.3 SEC (12.0-15.0)
--- NOTE | 2017-11-25 12:06 | ECHO ---
[email or web address] [address] [address] Main: [phone] Fax: Transthoracic Echocardiogram Name: ANDRY WARE MR#: [id number] Study Date: 11/25/2017 Study Time: 11:22 AM Date of : 1960 Age: 57 year(s) Height: 180.3 cm (71 in.) Weight: 87.09 kg (192 lb.) BSA: 2.07 m2 Gender: Male Examination: Limited Echo Indication: Tachycardia post MV repair # 30 Serna Image Quality: Contrast: Requested by: Ochoa Duarte BP: / Heart Rate: Rhythm: Indication: Tachycardia post MV repair # 30 Serna Procedure Staff Waste Picker: Lu Payne Physician: Alexei Guillen Requesting Provider: Conclusions: The ejection fraction is estimated to be 55-60 %. An annuloplasty ring is noted in the mitral valve position. SUNDAY causing LVOT gradient of 69mmHG.. Trivial pericardial effusion (posterior greater than anterior).. Compared to 11/19/2017, the patietn is currently in probable atrial flutter. Measurements: Chambers Valvular Assessment AV/MV Valvular Assessment TV/PV Normal Normal Normal Name Value Range Name Value Range Name Value Range EF Range: 55-60 % MV maxP mmHg ( - ) MV meanP mmHg ( - ) Continued Measurements: Valvular Assessment AV/MV Name Value MV VTI: 22.00 cm Findings: The ejection fraction is estimated to be 55-60 %. Mitral Valve: An annuloplasty ring is noted in the mitral valve position. Aortic Valve: SUNDAY causing LVOT gradient of 69mmHG.. Pericardium: Trivial pericardial effusion (posterior greater than anterior).. Exam Comments: Patient: ANDRY WARE Study Date: 11/25/2017 Page 1 of 2 11:22 AM Previous echo done 11/19/17.. (No Signature Object) Patient: ANDRY WARE Study Date: 11/25/2017 Page 2 of 2 11:22 AM D:_[facility] [id number]
[2017-11-25] MEDS: DILTIAZEM 125 MG in D5W 125 ML IV SCH ×2 (13:13→15:16)
--- NOTE | 2017-11-25 13:51 | CPEKG ---
Heart Rate: 118 RR Interval: 508 QRSD Interval: 90 QT Interval: 388 QTC Interval: 544 QRS [place]: -23 T Wave [place]: 109 EKG Severity - ABNORMAL ECG - EKG Impression: ATRIAL FLUTTER, A-RATE 283 EKG Impression: BORDERLINE LEFT AXIS DEVIATION EKG Impression: NONSPECIFIC T ABNORMALITIES, LATERAL LEADS EKG Impression: BORDERLINE ST ELEVATION, INFERIOR LEADS EKG Impression: PROLONGED QT INTERVAL Electronically Signed By: Ochoa Duarte 25-Nov-2017 15:23:24
[2017-11-25] MEDS ORDERED: ONDANSETRON 4 MG/2 ML VIAL IVP PRN (14:44)
[2017-11-25] MEDS ORDERED: TEMAZEPAM 15 MG CAP PO PRN (14:44)
[2017-11-25] MEDS ORDERED: DIGOXIN 500 MCG/2 ML AMP IVP SCH (15:00)
[2017-11-25] MEDS: ACETAMINOPHEN 325 MG TAB PO PRN (15:26)
--- NOTE | 2017-11-25 21:10 | CPEKG ---
Heart Rate: 74 RR Interval: 811 P-R Interval: 160 QRSD Interval: 92 QT Interval: 404 QTC Interval: 449 P Al[place]: 64 QRS [place]: -34 T Wave [place]: 140 EKG Severity - ABNORMAL ECG - EKG Impression: SINUS RHYTHM EKG Impression: LEFT AXIS DEVIATION EKG Impression: ABNORMAL T, CONSIDER ISCHEMIA, ANTERIOR AND LATERAL LEADS EKG Impression: COMPARED WITH 11/25/2017 AT 13:49 , NSR NOW PRESENT. T ABNL MORE PRONOUNCED. EKG Impression: QT SHORTER Electronically Signed By: Magalie Walker 26-Nov-2017 18:01:00
--- NOTE | 2017-11-25 21:39 | GHP ---
[f rep st] HISTORY AND PHYSICAL DATE OF ADMISSION: 11/25/2017 REASON FOR ADMISSION: Atrial flutter. HISTORY: Patient is a 57-year-old male who presented in September of 2017 with an upper respiratory t ract infection. During that hospital stay, an echocardiogram was performed which demonstrated modera [id number] mitral regurgitation and left ventricular dilatation. His mitral valve pathology had be en demonstrated by prior echocardiography. He had significant mitral valve prolapse and had been los t to followup. He was advised that he would probably need mitral valve surgery in the near future. However, we deferred further testing until after the holidays. In October, he underwent a cardiac c atheterization, which demonstrated angiographically normal coronary arteries. He also underwent a TE E, which demonstrated posterior leaflet prolapse and [id number] mitral regurgitation. On Nov, he underwent a mitral valve repair by Dr. Alexei Castaneda. He did have some postoperative atria l fibrillation which was controlled and he was discharged in sinus rhythm a few days after his surger y. He presents to the emergency room today complaining of new-onset of palpitations over the past 24 coleen rs. He has not had any chest pain or significant dyspnea. He has felt generally fatigued. In the e mergency room, his ECG demonstrated atrial flutter with 2:1 AV conduction producing a ventricular rat e of 139 BPM. Initially, the plan was to give him intravenous diltiazem in order to bring his rate down in the hopes of discharging him from the emergency room with a prescription for oral diltiazem. However, after just a 5 mg bolus of intravenous diltiazem his blood pressure decreased significantly with a genaro of his systolic blood pressure at approximately 60 mmHg. Because of difficulty controlling his rate without hypotension, t he decision was made to place him in observation overnight. PAST MEDICAL HISTORY: Apart from his valvular heart disease, his past medical history is basically u nremarkable with exception for a tendency to upper respiratory tract infections. MEDICATIONS: His home medications consist of aspirin 81 mg daily, furosemide 40 mg daily, potassium chloride 20 mEq daily, metoprolol 12.5 mg twice daily, and warfarin 5 mg daily. ALLERGIES: No known drug allergies. SOCIAL HISTORY: He is . He has 3 sons. He has never been a smoker. Alcohol consumption is minimal. He works in construction. He is physically active. FAMILY HISTORY: Noncontributory. REVIEW OF SYSTEMS: Apart from palpitations and fatigue which prompted this hospital encounter, a 10- point review was negative. PHYSICAL EXAMINATION: VITAL SIGNS: Heart rate approximately 140 BPM, blood pressure 113/67, O2 satu ration 98% on 2 L/minute oxygen via nasal cannula. GENERAL: Well-developed, well-nourished, middle- aged male in no acute distress. He is alert and oriented x3 and provides a good clinical history. H EAD AND NECK: No scleral icterus. Mucous membranes moist. Carotid pulses 2+ without bruits. There is no JVD. CHEST: Lung ojeda clear to auscultation. CARDIAC: Tachycardic regular rhythm without a murmur or gallop. ABDOMEN: Soft, nondistended, nontender, without masses. EXTREMITIES: 2+ puls es and no peripheral edema. LABORATORY STUDIES: His CBC demonstrates a white blood cell count of 10.93 with hemoglobin and hemat ocrit of 13.5 and 40.0. Platelet count is 366,000. His INR is somewhat subtherapeutic at 1.84. Sod ium is 144 with potassium 3.5 and BUN/creatinine 14/1.0. A troponin level is 0.354. ECG: His ECG demonstrates atrial flutter with 2:1 AV conduction. There is a left anterior fascicula r block. There are no acute ischemic changes. Echocardiogram: An echocardiogram performed in the emergency room demonstrates an ejection fraction of 55% to 60% without regional wall motion abnormalities. An annuloplasty is noted in the mitral pos ition. He has mild mitral regurgitation. There is evidence of a left ventricular outflow tract grad ient of approximately 69 mmHg. He has a small posterior pericardial effusion without evidence of gomez ponade. IMPRESSION: This is a 57-year-old male who is less than 2 weeks out from a mitral valve repair for m itral valve prolapse and significant mitral regurgitation. He had postoperative atrial fibrillation during his hospital stay. He now presents with symptomatic atrial flutter. In the emergency room, roldan rodriguez was given 5 mg of intravenous diltiazem with a plan to slow his heart rate, provide him with a pres cription for oral diltiazem, discharge him from the emergency room, and followup as an outpatient in our clinic with plans for elective cardioversion at a later date. However, following a 5 mg intraven ous bolus of diltiazem he became hypotensive with a systolic blood pressure of approximately 60 mmHg. This is despite the fact that he had been given a liter of intravenous fluids in the emergency room prior to receiving diltiazem. He does not demonstrate any evidence of volume retention/congestive h eart failure. His troponin is minimally elevated likely due to supply/demand myocardial oxygen deman d in the setting of his rapid atrial flutter. His preoperative cardiac catheterization demonstrated angiographically normal coronary arteries. PLAN: The patient will be placed on PCU for observation. Attempts will be made to start a low-dose intravenous diltiazem drip. Intravenous digoxin will also be given in an effort to slow his rate wit hout affecting his blood pressure. He may convert to normal sinus rhythm overnight. If he does not, the plan will be to discharge him once we ensure that his ventricular rate is adequately controlled. Consideration for cardioversion will be delayed until he is at least 1 month out from his open hear t surgery unless his clinical status demands otherwise. /[id number]/MODL
[2017-11-26] MEDS: ACETAMINOPHEN 325 MG TAB PO PRN ×2 (01:31→05:21)
--- NOTE | 2017-11-26 08:45 | CPEKG ---
Heart Rate: 73 RR Interval: 822 P-R Interval: 192 QRSD Interval: 92 QT Interval: 396 QTC Interval: 437 P [place]: 47 QRS [place]: -29 T Wave [place]: 132 EKG Severity - ABNORMAL ECG - EKG Impression: SINUS RHYTHM EKG Impression: BORDERLINE LEFT AXIS DEVIATION EKG Impression: ABNORMAL T, CONSIDER ISCHEMIA, ANTERIOR AND LATERAL LEADS EKG Impression: COMPARED WITH 11/25/2017 AT 21:07 NO SIG CHANGE Electronically Signed By: Magalie Walker 26-Nov-2017 17:59:10
[2017-11-26 08:57] VITALS: BP 108/67; PULSE 76; RESP 14; TEMP 98.1; O2SAT 94
[2017-11-26] MEDS ORDERED: FUROSEMIDE 40 MG TAB PO SCH (09:00)
[2017-11-26] MEDS ORDERED: POTASSIUM CL 20 MEQ TAB PO SCH (09:00)
[2017-11-26] MEDS ORDERED: ASPIRIN EC 81 MG TAB PO SCH (09:00)
[2017-11-26] MEDS ORDERED: DILTIAZEM CD 120 MG CAP PO SCH (09:00)
--- NOTE | 2017-11-26 11:05 | ECHO ---
[email or web address] [address] [address] Main: [phone] Fax: Transthoracic Echocardiogram Name: ANDRY WARE MR#: [id number] Study Date: 11/26/2017 Study Time: 09:47 AM Date of : 1960 Age: 57 year(s) Height: 180.3 cm (71 in.) Weight: 87.54 kg (193 lb.) BSA: 2.08 m2 Gender: Male Examination: Limited Echo Indication: Eval LVOT Image Quality: Contrast: Requested by: Alexei Guillen BP: 107 mmHg/58 mmHg Heart Rate: Rhythm: Indication: Eval LVOT Procedure Staff Cardroom Hand: Lu Payne Physician: Alexei Guillen Requesting Provider: Alexei Guillen Conclusions: Mild to moderate mitral regurgitation. Limited study. Measurements: Chambers Valvular Assessment AV/MV Valvular Assessment TV/PV Normal Normal Normal Name Value Range Name Value Range Name Value Range Continued Measurements: Findings: Mitral Valve: Mild to moderate mitral regurgitation. An annuloplasty ring is noted in the mitral valve position. Aortic Valve: Chordal SUNDAY present with a gradient of 45mmHG in normal sinus rhythm.. (No Signature Object) Patient: ANDRY WARE Study Date: 11/26/2017 Page 1 of 1 09:47 AM [id number]
--- NOTE | 2017-11-26 13:47 | GDS ---
[f rep st] DISCHARGE SUMMARY REASON FOR ADMISSION: Paroxysmal atrial flutter. HOSPITAL COURSE: Please refer to my dictated admission and physical. Briefly, the patient is a 57-y ear-old male, who underwent mitral valve repair on the of this month. He was discharged last we ek. He presented to the emergency room yesterday complaining of palpitations and fatigue. His ECG d emonstrated atrial flutter with a ventricular rate of 139 beats per minutes. Initially, it was hoped that he could be rate controlled in the emergency room and discharged home. However, after a modest bolus dose of 5 mg diltiazem, he experienced hypotension with a systolic pressure down to 60 mmHg. With time and intravenous fluids, his blood pressure normalized. He was placed on PCU for observatio n. He was started on a low-dose diltiazem drip. Yesterday evening he spontaneously returned to sinu s rhythm. There is no evidence for congestive heart failure. An echocardiogram performed in the [facility] room while he was in rapid atrial flutter, suggested mild to moderate mitral regurgitation and there was a left ventricular outflow tract gradient of 69 mmHg. Today, limited echo study was brayden talbot in sinus rhythm. He has mild to moderate mitral regurgitation and a left ventricular outflow tra ct gradient of 45 mm Hg. The patient did not have a left ventricular outflow tract gradient preopera tively. However, at that time, he had significant left ventricular dilatation. It appears that his left ventricular dimensions are decreasing and thus revealed the presence of his outflow tract gradie nt. RECOMMENDATIONS AND DISPOSITION: The patient is discharged in stable condition. Please refer to the electronic record for his medications. The only change is that his low-dose metoprolol will be repl aced with low-dose sustained release diltiazem at 120 mg daily. He is scheduled for his first cardia c rehabilitation session tomorrow. He has followup with Dr. Castaneda this November 29, at 11:0 0 DISCHARGE DIAGNOSIS: 1. Paroxysmal atrial flutter. 2. Recent mitral valve repair. /[id number]/MODL
[2017-11-26] MEDS ORDERED: WARFARIN SODIUM 5 MG TAB PO SCH (16:00)
--- NOTE | 2017-11-26 17:10 | ASDISCHSUM ---
Discharge Information Plan Status:Home with No Needs Medically Cleared to Leave:11/25/2017 Discharge Date:11/26/2017 11:35 AM CM D/C Disposition:Home, Routine, Self-Care ADT D/C Disposition:Home, Routine, Self-Care Projected Discharge Date:11/26/2017 12:00 AM Transportation at D/C: Discharge Delay Reason: Follow-Up Date:11/26/2017 12:00 AM Discharge Slot: Final Diagnosis:Aflutter Placement Information Patient Contact Information Contact Name:ANNETTA Relationship: Address:[address] City:[place] Alternate Phone: State/Zip Code:[place] [address] Email: Financial Information Financial Class:Self-Pay Primary Plan Desc:SELF PAY Primary Plan Number: Secondary Plan Desc: Secondary Plan Number: Assessment Information Case Management Discharge Plan Note Case Management Discharge Discharge Order Complete? Answers: Yes Patient to Obtain Answers: Independently Medications Transportation Arranged Answers: Family/Friends Transport will Pick (Date 11/26/2017 12:00 AM & Time) Family Notified Answers: Yes Notes: to transport Discharge Comments Notes: 57 year ole male admitted for Aflutter had a recent MVR, on medications and to start Cardiac Rehab. No other needs at this time. Date Signed: 11/26/2017 04:56 PM Electronically Signed By:Stephanie Calixto LCSW Intervention Information Intervention Type:*Incorrect Registration Date of Service:11/25/2017 08:48 AM Patient Type:Inpatient Staff Member:RHIANNA Robles Kerry Hours: Discipline: Severity: Comment:
== END 2017-11-26 11:35 | disposition home or self-care (01) ==
LOC: INTOOBSV 12:54 → F2N 14:35
PROVIDERS: ADMIT Internal Medicine Interventional Cardiology; ATTEND Internal Medicine Interventional Cardiology
DX: I48.0 Paroxysmal atrial fibrillation (principal)
CPT/HCPCS: 96374; G0378; J1160

== ENCOUNTER → 2017-12-03 | Outpatient (CLI) | payer MEDICAID | LOC: FIMAGING 13:03 | PROVIDERS: ATTEND Thoracic Surgery (Cardiothoracic Vascular Surgery) | DX: Z09 Encounter for follow-up examination after completed treatment for conditions other than malignant neoplasm (principal); I51.7 Cardiomegaly; J98.6 Disorders of diaphragm; J98.11 Atelectasis; Z95.2 Presence of prosthetic heart valve ==

== ENCOUNTER → 2017-12-10 | Outpatient (CLI) | payer MEDICAID | LOC: FIMAGING 13:44 → EDSTATUS 13:45 | PROVIDERS: ATTEND Thoracic Surgery (Cardiothoracic Vascular Surgery) | DX: Z09 Encounter for follow-up examination after completed treatment for conditions other than malignant neoplasm (principal); Z95.4 Presence of other heart-valve replacement ==

== ENCOUNTER 2017-12-24 14:51 | Observation (INO) | payer MEDICAID ==
[2017-12-24] MEDS ORDERED: NS 1,000 ML IV ONE (15:10)
--- NOTE | 2017-12-24 15:12 | EDPHY ---
H & P Time Seen by Provider: 12/24/17 15:02 HPI/ROS: Chief complaint. Palpitations HPI. Patient is a 57-year-old male who is about 1 month post aortic valve repair. It has been complicated by atrial fibrillation in hospitalization. For the last few weeks however he tells me he has been doing quite well. Yesterday at cardiac rehab he noticed that his heart rate was going up to 120 and then down to 50. This morning he had a near syncopal episode as he was quite lightheaded. His blood pressure was noted to be low when he and his took it at home. 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 He denies chest discomfort or trouble breathing. His main complaint was the lightheadedness this morning and almost passing out and then the sense of irregular heart beat. ROS Constitutional. no fever/chills, no weakness Eyes. no problems with vision ENT. no sore throat, no nasal drainage Cardiovascular. Palpitations Respiratory. no shortness of breath, no cough Abdominal. no abdominal pain, no nausea/vomiting, no diarrhea . no problems urinating MS. no calf pain/swelling, no neck/back pain, no joint pain Skin. no rash Lymph. no swollen glands Neuro. Near syncope Past Medical/Surgical History: Past medical history is significant for mitral valve prolapse, atrial fibrillation, Maze procedure on November 15 Social History: , nonsmoker, no alcohol Smoking Status: Never smoked Physical Exam: General Appearance: Alert well-developed male moderate distress vital signs show an initial blood pressure 77/70. Heart rate initially 66 though increases to approximately 140 Eyes: Pupils equal and round no pallor or injection. ENT, Mouth: Mucous membranes are moist. Respiratory: There are no retractions, lungs are clear to auscultation. Cardiovascular: Irregularly irregular rate and rhythm Gastrointestinal: Abdomen is soft and nontender, no masses, bowel sounds normal. Neurological: Awake and alert, sensory and motor exams grossly normal. Skin: Warm and dry, no rashes. Musculoskeletal: Neck is supple nontender. Extremities symmetrical, full range of motion. Psychiatric: Patient is oriented X 3, there is no agitation. Constitutional: Initial Vital Signs Temperature (C) 36.6 C 12/24/17 14:52 Heart Rate 66 12/24/17 14:52 Respiratory Rate 16 12/24/17 14:52 Blood Pressure 77/70 L 12/24/17 14:52 O2 Sat (%) 93 12/24/17 14:52 O2 Delivery Mode Room Air Allergies/Adverse Reactions: No Known Allergies Allergy (Verified 11/25/17 09:59) Home Medications: Medication Instructions Recorded Acetaminophen [Tylenol 325mg (*)] 325 - 650 mg PO Q4HRS PRN tab 11/21/17 Aspirin EC [Aspirin EC 81 mg (*)] 81 mg PO DAILY #30 tab 11/21/17 Diltiazem Cd [Cardizem ER 120 MG 120 mg PO DAILY 12/24/17 (*)] Ibuprofen [Motrin (*)] 400 mg PO DAILY 12/24/17 Metoprolol Tartrate [Lopressor 25 50 mg PO BID 12/24/17 mg (*)] Warfarin Sodium [Coumadin 5MG (*)] 5 mg PO SUTUTHSA@1600 12/24/17 Warfarin Sodium [Coumadin 5MG (*)] 7.5 mg PO MOWEFR@1600 12/24/17 Medical Decision Making - Diagnostics EKG Interpretation: EKG interpreted by me shows atrial flutter with a 2-1 block. Left axis deviation. There is a period of normal sinus rhythm in the EKG. Monitor shows atrial fibrillation and then intermittently with normal sinus rhythm Imaging Results: Imaging Impressions Chest X-Ray 12/24/17 15:10 Impression: Stable chest, with no definite acute findings. Chest x-ray reviewed by me shows slight right side pleural effusion but otherwise no evidence for pneumonia Procedures: IV normal saline, monitor. Patient's blood pressure is low he is given 1 L of saline. At 3:15 p.m. Blood pressure is 140/114 with heart rate 104 ED Course/Re-evaluation: At about 3:25 p.m. I spoke with Magalie Walker from Cardiology. She will comedown and consult and help evaluate the patient. Re-evaluation again at 3:40 p.m. And heart rate is now 97 low blood pressure 68/ 63 after 1 L of saline 4:10 p.m. heart rate has just been about 85. Currently 145 with blood pressure 82/57. Patient is stable. AwaitingCardiology consult. I have consulted and discussed case with Dr. Kunz, hospitalist, who agrees to the admission 4:[address] Walker is here. She recommends amiodarone. The current heart rate is 100 and appears patient is in sinus rhythm. Blood pressure 128/61 5:05 p.m.. Patient is stable. Heart rate 88 and mainly in normal sinus rhythm though frequent PACs. Blood pressure 121/68 Differential Diagnosis: Patient is intermittently hypotensive and intermittently in and a rapid atrial fibrillation. However between times he is in sinus rhythm and can have stable blood pressure. The amiodarone seems to help keep him in normal sinus rhythm. Critical Care Time: Critical care time exclusive procedures 45 min - Data Points Laboratory Results: Laboratory Results 12/24/17 15:05 12/24/17 15:05 12/24/17 12/24/17 12/24/17 15:05 15:05 15:05 WBC 10.96 10^3/uL H 10^3/uL (3.80-9.50) RBC 5.05 10^6/uL 10^6/uL (4.40-6.38) Hgb 14.1 g/dL g/dL (13.7-17.5) Hct 42.9 % % (40.0-51.0) MCV 85.0 fL fL (81.5-99.8) MCH 27.9 pg pg (27.9-34.1) MCHC 32.9 g/dL g/dL (32.4-36.7) RDW 13.9 % % (11.5-15.2) Plt Count 283 10^3/uL 10^3/uL (150-400) MPV 10.8 fL fL (8.7-11.7) Neut % (Auto) 65.2 % % (39.3-74.2) Lymph % (Auto) 25.0 % % (15.0-45.0) [place] % (Auto) 6.8 % % (4.5-13.0) Eos % (Auto) 1.6 % % (0.6-7.6) Baso % (Auto) 0.9 % % (0.3-1.7) Nucleat RBC Rel Count 0.0 % % (0.0-0.2) Absolute Neuts (auto) 7.14 10^3/uL H 10^3/uL (1.70-6.50) Absolute Lymphs (auto) 2.74 10^3/uL 10^3/uL (1.00-3.00) Absolute Monos (auto) 0.75 10^3/uL 10^3/uL (0.30-0.80) Absolute Eos (auto) 0.17 10^3/uL 10^3/uL (0.03-0.40) Absolute Basos (auto) 0.10 10^3/uL 10^3/uL (0.02-0.10) Absolute Nucleated RBC 0.00 10^3/uL 10^3/uL (0-0.01) Immature Gran % 0.5 % % (0.0-1.1) Immature Gran # 0.06 10^3/uL 10^3/uL (0.00-0.10) PT 21.7 SEC H SEC (12.0-15.0) INR 1.88 H (0.83-1.16) APTT 41.2 SEC H SEC (23.0-38.0) Sodium 140 mEq/L mEq/L (135-145) Potassium 4.4 mEq/L mEq/L (3.5-5.2) Chloride 104 mEq/L mEq/L (97-110) Carbon Dioxide 20 mEq/l L D mEq/l (22-31) Anion Gap 16 mEq/L mEq/L (8-16) BUN 23 mg/dL mg/dL (7-23) Creatinine 1.0 mg/dL mg/dL (0.7-1.3) Estimated GFR > 60 Glucose 111 mg/dL H mg/dL (70-100) Calcium 9.7 mg/dL mg/dL (8.5-10.4) Troponin I 0.024 ng/mL ng/mL (0.000-0.034) NT-Pro-B Natriuret Pep 1680 pg/mL H pg/mL (0-125) Medications Given: Amiodarone HCl (Amiodarone Hcl) 200 mls @ 33.333 mls/hr IV ONCE ONE Stop: 12/24/17 22:39 Last Admin: 12/24/17 16:56 Dose: 200 mls Metoprolol Tartrate (Lopressor) 50 mg PO BID CHRISTIAN Stop: 06/22/18 20:59 Last Admin: 12/24/17 21:09 Dose: Not Given Discontinued Medications Sodium Chloride (Ns) 1,000 mls @ 0 mls/hr IV EDNOW ONE; Wide Open PRN Reason: Protocol Stop: 12/24/17 15:11 Last Admin: 12/24/17 15:13 Dose: 1,000 mls Amiodarone HCl (Amiodarone Hcl) 100 mls @ 600 mls/hr IV ONCE ONE Stop: 12/24/17 16:49 Last Admin: 12/24/17 16:49 Dose: 100 mls Departure - Departure Disposition: [facility] Inpatient Acute Clinical Impression: Atrial fibrillation Qualifiers: Atrial fibrillation type: paroxysmal Qualified Code(s): I48.0 - Paroxysmal atrial fibrillation Condition: Fair
--- NOTE | 2017-12-24 15:12 | CPEKG ---
Heart Rate: 137 RR Interval: 438 QRSD Interval: 86 QT Interval: 332 QTC Interval: 502 QRS [place]: -18 T Wave [place]: 69 EKG Severity - ABNORMAL ECG - EKG Impression: A-FLUTTER W/ PREDOM 2:1 AV BLOCK, A-RATE 294 EKG Impression: BORDERLINE LEFT AXIS DEVIATION EKG Impression: PROLONGED QT INTERVAL Electronically Signed By: Ochoa Duarte 24-Dec-2017 17:30:57
[2017-12-24 15:19] LABS: PLATELET COUNT 283 10^3/uL (150-400)
--- NOTE | 2017-12-24 15:31 | CPEKG ---
Heart Rate: 73 RR Interval: 822 P-R Interval: 272 QRSD Interval: 90 QT Interval: 344 QTC Interval: 379 P [place]: 42 QRS [place]: -29 T Wave [place]: 100 EKG Severity - ABNORMAL ECG - EKG Impression: SINUS RHYTHM EKG Impression: FIRST DEGREE AV BLOCK EKG Impression: BORDERLINE LEFT AXIS DEVIATION EKG Impression: NONSPECIFIC T ABNORMALITIES, LATERAL LEADS Electronically Signed By: Ochoa Duarte 24-Dec-2017 17:30:53
[2017-12-24 15:51] LABS: INR 1.88 (0.83-1.16); PROTIME(PATIENT) 21.7 SEC (12.0-15.0)
[2017-12-24] MEDS ORDERED: AMIODARONE HCL 150 MG/3 ML VIAL ONE ×2 (16:20→16:32)
[2017-12-24] MEDS ORDERED: AMIODARONE HCL 150 MG/100 ML BAG (1.5 MG/ML) IV ONE (16:21)
[2017-12-24] MEDS ORDERED: AMIODARONE HCL 200 ML IV ONE (16:40)
[2017-12-24] MEDS ORDERED: AMIODARONE HCL 100 ML IV ONE (16:40)
[2017-12-24] MEDS ORDERED: ACETAMINOPHEN 325 MG TAB PO PRN (16:59)
[2017-12-24] MEDS ORDERED: ONDANSETRON 4 MG/2 ML VIAL IVP PRN (16:59)
--- NOTE | 2017-12-24 17:26 | GHP ---
[f rep st] HISTORY AND PHYSICAL DATE OF ADMISSION: 12/24/2017 CHIEF COMPLAINT: Palpitations. HISTORY: The patient is a 57-year-old male, who underwent a mitral valve repair with maze procedure [address] Castaneda. He was admitted 3 days later with recurrent AFib and started on oral dilti azem. He has done relatively well since then but is now presenting with recurrent rapid AFib. Yeste rd afternoon, he was at cardiac rehab and had a little bit of palpitations, and the heart rate only went up to 110-115. This morning, palpitations became severe with associated dizziness and rapid AF ib now with a heart rate of 145. He denies any chest pain or shortness of breath. He has otherwise been doing well post surgery with only some minimal chest wall pain at his incision. He has no recen t infectious symptoms. PAST MEDICAL HISTORY: 1. Atrial fibrillation, status post maze. 2. Severe mitral regurgitation and mitral valve prolapse, status post mitral valve repair 1 month ag o. MEDICATIONS: Please see computer record for full detailed list. ALLERGIES: No known drug allergies. SOCIAL HISTORY: No smoking. No alcohol. Lives with his . REVIEW OF SYSTEMS: Complete review of systems obtained. Review of systems is negative on constituti onal, HEENT, GI, pulmonary, cardiovascular, , hematology, skin, musculoskeletal, endocrine, psych e xcept for positives and negatives as noted in HPI. FAMILY HISTORY: Reviewed, noncontributory to presenting complaint. PHYSICAL EXAMINATION: GENERAL: Well-developed, well-nourished male, in no distress. VITAL SIGNS: Temperature 36.6, pulse 147, blood pressure 77/70, saturating 93% on room air. HEENT: Eyes: Normal conjunctivae. Pupils equal, react to light. ENT: Normal ears and nose. Hear ing intact. Normal teeth. Oropharynx moist. NECK: Trachea midline. No thyromegaly. CHEST: Normal respiratory effort. Lungs clear to auscultation bilaterally. CARDIOVASCULAR: Irregular irregular. No murmur. No extremity edema. ABDOMEN: Soft, nontender. No hepatosplenomegaly. SKIN: Warm, dry, intact. No rash. MUSCULOSKELETAL: No cyanosis or clubbing. Strength 5/5 upper and lower extremities. NEUROLOGIC: Cranial nerves intact. Normal sensation to light touch. PSYCH: Alert and oriented x3. Normal affect. Normal judgment and insight. Normal memory. LABORATORY DATA: White count 10.96, hematocrit 43.9, platelets 283. Sodium 140, potassium 4.4, chlo ride 104, bicarb 20, BUN 23, creatinine 1.0, glucose 111. Troponin is negative. BNP is 1680. INR i s 1.88. EKG viewed by me. My personal interpretation is atrial fibrillation with rapid ventricular response, no ST or T wave changes. Chest x-ray is negative. This case was discussed with Dr. Ochoa Duarte, emergency room physician. He has spoken to Dr. Magalie Walker and asked her to consult in the emergency room given instability. ASSESSMENT/PLAN: 1. Atrial fibrillation with rapid ventricular response, status post recent maze procedure. Patient has been initiated on IV amiodarone per Dr. Walker and has stabilized nicely with good heart rate and i mproved blood pressure. He is chronically on warfarin for stroke prevention which will be continued. His INR is a little on the low side. He may need a dose increase. 2. Mitral valve repair 1 month ago due to severe mitral regurgitation due to mitral valve prolapse. He is doing well postoperatively. He has minimal chest wall pain which he controls with Motrin and Tylenol. 3. Hypotension. This is due to his rapid heart rate. This has improved after IV fluid and rate con trol in the emergency room. We will continue to watch it closely. CODE STATUS: Full. ADMISSION STATUS: 1. Will admit to observation and re-evaluate tomorrow regarding ongoing need for hospitalization. 2. DVT prophylaxis. He is low risk given chronic anticoagulation. Will continue warfarin. /[id number]/MODL
--- NOTE | 2017-12-24 18:11 | GCON ---
[f rep st] CONSULTATION CARDIOLOGY CONSULT DATE OF CONSULTATION: 12/24/2017 REFERRING PHYSICIAN: Ochoa Duarte MD CHIEF COMPLAINT: Arrhythmia. HISTORY OF PRESENT ILLNESS: We were asked by Dr. Duarte to visit with this patient. The patient is a pleasant 57-year-old male who had a mitral valve repair and exclusion of his left atrial appendage with an atrial clip with Dr. Castaneda on November 16 of this year. He has done well postoperatively. He did have brief episodes of atrial fibrillation and was started on Coumadin as well as metoprolol and diltiazem. Yesterday at cardiac rehab, he was feeling lightheaded and was told he had some intermittent tachycar sol. Today, he was having intermittent bouts of tachycardia but also some slow heart rates in the 50 s when he measured it. He felt lightheaded. He did not feel short of breath. He did not have any n ew chest discomfort. He presented to Dr. Castaneda's office, and a 12-lead EKG demonstrated what appears to be atrial tachycardia at 140 beats per minute. He was then sent to the ER. In the emergency department, he has been in an out of atrial tachycardia with brief periods of sinus rhythm. He has been given 1 L of saline but still has systolic blood pressures that are occasionally below 90. He still feels lightheaded. REVIEW OF SYSTEMS: A full 10-point review of systems was performed and is negative except that which is outlined in the history of present illness. ALLERGIES: No known drug allergies. PAST MEDICAL HISTORY: 1. Cardiac surgery with mitral valve repair and exclusion of his left atrial appendage as detailed p er #1. 2. Paroxysmal atrial fibrillation. 3. Paroxysmal atrial tachycardia. SOCIAL HISTORY: The patient is . is at the bedside. Does not smoke cigarettes or drink alcohol. FAMILY HISTORY: Not applicable to the current case. PHYSICAL EXAMINATION: VITAL SIGNS: Blood pressure is 82/57, heart rate intermittently up to 147. T here is sinus rhythm in the 60s and 70s. Oxygen saturation 93% on room air. He is afebrile. GENERA L: Slightly ill-appearing middle-aged male who is uncomfortable. HEENT: Sclerae clear. No jaundic e. Mucous membranes are moist. CARDIOVASCULAR: JVP is less than 10. We do see kerr A-waves when he is in atrial tachycardia. Regular rate and regular, tachycardic rhythm without murmur, rub, or g allop. LUNGS: Clear bilateral without wheezing, rhonchi, or rales. There are slight decreased italo th sounds at the right base. ABDOMEN: Soft, nontender, nondistended without bruits, mass, hepatospl enomegaly. Sternotomy and thorascopic incisions appear clean, dry, and intact without oozing. EXTRE MITIES: Warm and well perfused without cyanosis, clubbing, or edema. NEURO: Alert and oriented x3 without gross focal neurologic deficit. LABORATORY STUDIES: White count 10.96, hematocrit 42.9, and platelets are 283. INR 1.88. Sodium 14 0, potassium 4.4, chloride 104, bicarb 20, BUN 20, creatinine 1. Troponin is 0.024. BNP 1680. Serial EKGs reviewed by me as detailed above. Chest x-ray reviewed by me: No acute cardiopulmonary process, elevated right hemidiaphragm, mitral v alve ring and atrial appendage clips are seen. ASSESSMENT AND PLAN: 57-year-old male 6 weeks status post mitral valve repair, now presents with rec urrent atrial arrhythmia. He did have an admission at the end of November with what appeared to be at rial flutter. His current rhythm is more likely atrial tachycardia. He is intermittently hemodynami bill unstable in this rhythm but has responded well to IV fluids. 1. Atrial tachycardia: We will start an amiodarone drip after 150 mg bolus. I would like to hold h is metoprolol and diltiazem for now. His Coumadin will be continued for his history of postoperative atrial fibrillation. Consider electrophysiology consultation tomorrow. 2. Recent mitral valve surgery: Would suggest echocardiogram this admission to ensure the integrity of his valve repair. His cardiac exam is normal. Thank you for allowing us to participate in this patient's care. We will follow with you. Copy requested to: Loyd Argueta /[id number]/MODL
[2017-12-24] MEDS ORDERED: AMIODARONE A.FIB-18HR INFSN (ORDER 3/3) IV ONE ×2 (21:00→23:00)
[2017-12-24] MEDS: METOPROLOL TARTRATE 25 MG TAB PO SCH (21:09)
[2017-12-25 05:08] LABS: INR 2.06 (0.83-1.16); PROTIME(PATIENT) 23.3 SEC (12.0-15.0)
[2017-12-25 08:04] VITALS: O2SAT 95
[2017-12-25] MEDS ORDERED: DILTIAZEM CD 120 MG CAP PO SCH (09:00)
[2017-12-25] MEDS ORDERED: ASPIRIN EC 81 MG TAB PO SCH (09:00)
[2017-12-25] MEDS ORDERED: AMIODARONE HCL 200 MG TAB PO SCH (09:00)
[2017-12-25] MEDS ORDERED: IBUPROFEN 200 MG TAB PO SCH (09:00)
--- NOTE | 2017-12-25 09:22 | PDCARPN ---
Cardiology Progress Note Assessment/Plan: Assessment/plan: 57 yo M s/p MV repair with AtriClip on 11/16. Admitted through ED on 12/24 with SVT (AT vs AVNRT) and hypotension. Arrhythmia resolved with IV amiodarone. 1. SVT: finish 24 hour IV amiodarone load. Start oral amiodarone 200 mg daily. Outpatient EP evaluation with Dr. Pearson. Continue coumadin for post op PAF, which has not been seen this admission 2. MV repair: normal function on preliminary review of echo. Can be discharged later this afternoon if remains stable. 12/25/17 09:20 Subjective: Migue feels better. No palpitations, CP, or lightheadedness. No SOB Reviewed/Discussed With: family, hospitalist Objective: Vital Signs (8 Hrs) Temp Pulse Resp BP Pulse Ox 12/25/17 08:02 36.6 C 63 16 108/64 95 12/25/17 04:00 36.8 C 59 L 19 92/64 L 92 Intake/Output (24 Hrs) 12/24/17 12/25/17 12/26/17 05:59 05:59 05:59 Intake Total 1846 Output Total 1500 400 Balance 346 -400 Intake: Oral (ml) 400 IV Infused (ml) 1446 Amiodarone HCl 200 ml @ 211 33.333 mls/hr IV ONCE ONE Rx#:[id number] Amiodarone HCl 540 mg In 115 D5w 300 ml @ 16.667 mls/ hr IV ONCE ONE Rx#: [id number] Output: Urine (ml) 1500 400 Urinal 1500 400 Other: Weight 95.3 kg Number of Voids 1 Urinal 3 1 NAD JVP <10 RRR no m/r/g Lungs CTAB No edema Result Diagrams: 12/24/17 15:05 12/24/17 15:05 Telemetry: NSR, blocked PACs vs 2:1 AT ICD10 Worksheet Patient Problems: Problems Problem Status Onset Atrial fibrillation Acute Acute blood loss anemia Acute S/P MVR (mitral valve repair) Acute Hyperlipidemia Chronic Nonischemic dilated cardiomyopathy Chronic Severe mitral regurgitation Acute
[2017-12-25] MEDS: METOPROLOL TARTRATE 25 MG TAB PO SCH (10:23)
--- NOTE | 2017-12-25 11:06 | ECHO ---
[email or web address] [address] [address] Main: [phone] Fax: Transthoracic Echocardiogram Name: ANDRY WARE MR#: [id number] Study Date: 12/25/2017 Study Time: 08:19 AM Date of : 1960 Age: 57 year(s) Height: 182.9 cm (72 in.) Weight: 92.99 kg (205 lb.) BSA: 2.15 m2 Gender: Male Examination: Echo Indication: Atrial tachycardia/post MV repair Image Quality: Contrast: Requested by: Magalie Walker BP: / Heart Rate: Rhythm: Indication: Atrial tachycardia/post MV repair Procedure Staff Waitress: Lu Ramírez [facility] Reading Physician: Garcia Bach Requesting Provider: Conclusions: Normal global systolic LV function. The ejection fraction is estimated to be 60-65 %. Mild mitral valve regurgitation is present. An annuloplasty ring is noted in the mitral valve position. Chordal SUNDAY without LVOT obstruction. MV max PG is 10mmHG.. MV mean PG is 5mmHG.. Mild aortic valve regurgitation is present. Mildly dilated aortic root measuring 4.3 cm. Measurements: Chambers Valvular Assessment AV/MV Valvular Assessment TV/PV Normal Normal Normal Name Value Range Name Value Range Name Value Range Ao Samantha (2D): 4.3 cm (1.4 cm-2.6 AV meanP mmHg ( - ) cm) LVOT Vmax: 1.19 m/s (0.7 m/s-1.1 IVSd (2D): 0.9 cm (0.6 cm-1.1 m/s) cm) MV meanP mmHg ( - ) LVDd (2D): 5.7 cm (4.2 cm-5.9 cm) LVDs (2D): 3.7 cm (2.1 cm-4 cm) LVPWd (2D): 0.8 cm (0.6 cm-1 cm) LVEF (MOD4): 60 % (>=55 %) EF Range: 60-65 % Continued Measurements: Chambers Valvular Assessment AV/MV Name Value Name Value LADs: 4.4 cm MV VTI: 60.80 cm Patient: ANDRY WARE Study Date: 12/25/2017 Page 1 of 2 08:19 AM LADs Lon.6 cm LA Area: 25.5 cm2 Findings: Left Ventricle: Normal size left ventricle. No LV hypertrophy. Normal global systolic LV function. The ejection fraction is estimated to be 60-65 %. No regional wall motion abnormality. Normal diastolic LV function. Right Ventricle: Normal size right ventricle. There is a moderator band noted in the right ventricle. Left Atrium: The left atrium is mildly dilated. Right Atrium: The right atrium is normal in size. Mitral Valve: Mild mitral valve regurgitation is present. An annuloplasty ring is noted in the mitral valve position. Chordal SUNDAY without LVOT obstruction. MV max PG is 10mmHG.. MV mean PG is 5mmHG.. Aortic Valve: The aortic valve is normal in appearance and function. The aortic valve is tri-leaflet. Mild aortic valve regurgitation is present. Tricuspid Valve: The tricuspid valve is normal in appearance and function. Trivial tricuspid valve regurgitation. Pulmonic Valve: The pulmonic valve is normal in appearance and function. Trivial pulmonic valve regurgitation. Aorta: The aorta is normal. Mildly dilated aortic root measuring 4.3 cm. Pericardium: No pericardial effusion. (No Signature Object) Patient: ANDRY WARE Study Date: 12/25/2017 Page 2 of 2 08:19 AM [id number]
--- NOTE | 2017-12-25 11:06 | ASMTCASEMG ---
Living Arrangements What is your living Answers: With Spouse arrangement? Who do you live with? Type Of Residence What kind of residence do Answers: House you live in? Discharge Plan Comments Coordination Status Comments Notes: Patient is a 57yo male who underwent a mitral valve repair with a maze procedure [address] Castaneda. Patient was admitted for atrial fibrillation with rapid ventricular response and hypotension due to rapid heart rate. No therapies have been ordered. Patient has responded well to IV amiodarone. Patient is doing cardiac rehab from his procedure 1 month ago. D/C plan TBD. CM will follow. Date Signed: 12/25/2017 11:06 AM Electronically Signed By:Savanna Smith LCSW
[2017-12-25 11:50] VITALS: BP 114/62; PULSE 68; RESP 18; TEMP 97.6
--- NOTE | 2017-12-25 15:15 | GDS ---
[f rep st] DISCHARGE SUMMARY ALL DIAGNOSES: 1. Atrial fibrillation with rapid ventricular response. 2. Recent maze procedure. 3. Recent mitral valve repair for severe regurgitation and prolapse [address] Castaneda. 4. Hypotension in the setting of atrial fibrillation with rapid ventricular response. HOSPITAL COURSE: A 57-year-old man, who underwent a recent mitral valve repair as well as maze proce dure by Dr. Castaneda, presented with palpitations. Found to be in atrial fibrillation with rapid ventri cular response. He was seen by Cardiology, who recommended IV amiodarone. He received a 24-hour mrois d. He converted to sinus rhythm during this. He will be transitioned to p.o. amiodarone on discharg e with followup with Dr. Castaneda. We recommend discontinuing his diltiazem as well as metoprolol on di r given his hypotension. In discussion with Dr. Walker, as well as Dr. Castaneda, will hold his aspirin on discharge and continue hi m on Coumadin. FOLLOWUP: 1. Dr. Pearson in 1-2 weeks. He was given this information. 2. Anticoagulation Clinic 2 days after discharge. Will need to monitor his INR more closely now alex t he is on amiodarone, at least in the near future. DISPOSITION: Discharged home in stable condition. /[id number]/MODL
[2017-12-25] MEDS ORDERED: WARFARIN SODIUM 5 MG TAB PO SCH (16:00)
[2017-12-26] MEDS ORDERED: WARFARIN SODIUM 5 MG TAB PO SCH (16:00)
== END 2017-12-25 15:15 | disposition home or self-care (01) ==
LOC: F2N 17:47
PROVIDERS: ADMIT Internal Medicine; ATTEND Student in an Organized Health Care Education/Training Program
DX: I48.91 Unspecified atrial fibrillation (principal); I95.9 Hypotension, unspecified; Z95.4 Presence of other heart-valve replacement; Z79.01 Long term (current) use of anticoagulants; Z95.2 Presence of prosthetic heart valve; E78.5 Hyperlipidemia, unspecified; I35.9 Nonrheumatic aortic valve disorder, unspecified; R42 Dizziness and giddiness
CPT/HCPCS: 71045; 93005; 93306; 99291; G0378; J0282